=== PATIENT | male | born 1995 | race African-American/Black ===

== ENCOUNTER 2018-10-25 13:17 | Emergency (ER) | payer OTHER ==
[~2018-10-25] VITALS: Ht 188 cm; Wt 90.7 kg
[2018-10-25 14:36] VITALS: BP 141/73
--- NOTE | 2018-10-25 14:54 | PHYS DOC ---
Past Medical History Past Medical History: No Pertinent History Past Surgical History: No Surgical History Alcohol Use: Occasionally Drug Use: Marijuana Adult General Chief Complaint Chief Complaint: HIP PAIN HPI HPI Patient is a previously healthy 23-year-old male who presents to the emergency department for evaluation. He has had right hip/groin area pain for the past several months, waxing and waning, some improvement with use of ibuprofen. He states the pain became worse last night, and prevented him from sleeping so he came to the emergency department for evaluation. He has not seen a physician for this pain yet until this point. He denies any precipitating or inciting injury, or recent injuries. He denies any numbness, weakness, or incontinence. He does admit some lower back pain as well, and the pain radiates from his right hip, down towards the lateral and anterior aspect of his right thigh. He does not have any tenderness to palpation in this area per say. He does have some discomfort in his right groin. He has not had any masses in that area. He denies any penile discharge or urinary symptoms. He denies any testicular pain. He has not had any abdominal pain, fevers, or chills. He does smoke marijuana occasionally but denies any history of IV drug use. There are no alleviating or exacerbating factors to the patient's symptoms except that certain movements seem to worsen his pain. Review of Systems Review of Systems Constitutional: Denies fever or chills [] Eyes: Denies change in visual acuity, redness, or eye pain [] HENT: Denies nasal congestion or sore throat [] GI: Denies abdominal pain, nausea, vomiting, bloody stools or diarrhea [] : Denies dysuria or hematuria [] Musculoskeletal: Denies back pain or joint pain, except as noted in the history of present illness [] Integument: Denies rash or skin lesions [] Neurologic: Denies headache, focal weakness or sensory changes [] Allergies Allergies Allergies Coded Allergies Type Severity Reaction Last Updated Verified No Known Drug Allergies 10/25/18 No Physical Exam Physical Exam PHYSICAL EXAM: CONSTITUTIONAL: Well developed, well nourished HEAD: normocephalic, atraumatic EENT: PERRL, EOMI. Conjunctivae normal color, sclerae non-icteric; moist mucous membranes. NECK: Supple, non-tender; no meningismus. LUNGS: Lungs CTA, breathing even and unlabored. Normal air movement. HEART: Regular rate and rhythm, no murmur CHEST: No deformity; non-tender ABDOMEN: The abdomen is soft, and non-tender, no masses or bruits. EXTREM: Normal ROM; no deformity, no calf tenderness. Normal pulses palpable in all extremities. There is no pedal edema. SKIN: No rash; no diaphoresis NEURO: Alert; normal speech and cognition; CN's grossly intact; strength grossly intact without focal deficit. Sensation in the right groin is intact. BACK: No CVA TTP. There is mild tenderness to palpation diffusely in the lumbar spine without bony tenderness to palpation or step-off. MUSCULOSKELETAL/GENITAL: Normal external genitalia is present. There are no palpable hernias. There is no penile discharge. There is no palpable mass in the right groin. There is mild tenderness to palpation in the right groin area, there is tenderness to palpation of the right hip area diffusely, without focal bony tenderness to palpation. Current Patient Data Vital Signs Vital Signs Date Time Temp Pulse Resp B/P (MAP) Pulse Ox O2 Delivery O2 Flow Rate FiO2 10/25/18 14:36 98.2 74 16 141/73 (95) 100 Room Air 98.2 Lab Values Laboratory Tests Test 10/25/18 14:47 Urine Collection Type Unknown Urine Color Yellow Urine Clarity Clear Urine pH 6.0 Urine Specific [place] 1.015 Urine Protein Negative mg/dL (NEG-TRACE) Urine Glucose (UA) Negative mg/dL (NEG) Urine Ketones (Stick) 15 mg/dL (NEG) Urine Blood Negative (NEG) Urine Nitrite Negative (NEG) Urine Bilirubin Negative (NEG) Urine Urobilinogen Dipstick 0.2 mg/dL (0.2 mg/dL) Urine Leukocyte Esterase Negative (NEG) Urine RBC 0 /HPF (0-2) Urine WBC 0 /HPF (0-4) Urine Bacteria 0 /HPF (0-FEW) Urine Mucus Slight /LPF EKG EKG [] Radiology/Procedures Radiology/Procedures [PROCEDURE: HIP RIGHT 2 VIEW EXAM: Right hip, 2 views; lumbar spine, 3 views. HISTORY: Pain. COMPARISON: None. FINDINGS: Frontal and frog-leg views of the right hip and frontal, lateral and coned sacral views of the lumbar spine are obtained. There is no fracture, dislocation or subluxation. There is slight retrolisthesis of L5 on S1. The vertebral bodies are normal in height and the disc spaces are preserved. IMPRESSION: No acute osseous finding.] Course & Med Decision Making Course & Med Decision Making Pertinent Labs and Imaging studies reviewed. (See chart for details) [3:30 PM: The patient's condition remains a stable. Discussed test results in detail with the patient, the need for close follow-up with orthopedics, the possible need for outpatient MRI of his lumbar spinous symptoms persist, and return precautions. Differential diagnosis includes groin strain, versus degenerative disc disease] Dragon Disclaimer Dragon Disclaimer This electronic medical record was generated, in whole or in part, using a voice recognition dictation system. Departure Departure Impression: Primary Impression: Hip pain Disposition: 01 HOME, SELF-CARE Condition: STABLE Referrals: TAE ORTEGA II, MD, FRANK P MD Patient Instructions: Hip Pain, Lumbosacral Radiculopathy Additional Instructions: Applying a heating pad to the affected area may help improve your symptoms. The prescribed medications may cause drowsiness-use caution while taking. Further outpatient evaluation, both of orthopedics, and with a auricular detoxification specialist is warranted, for further evaluation of your symptoms. You might need an MRI of her hip, lumbar spine, or both, for further evaluation. Please use the attached phone numbers to help schedule follow-up appointment. Scripts Diclofenac Sodium (DICLOFENAC SODIUM) 50 Mg Tablet.dr 1 TAB PO BID, #20 TAB 0 Refills Prov: LAXMI GONZALEZ MD 10/25/18 Cyclobenzaprine Hcl (CYCLOBENZAPRINE HCL) 10 Mg Tablet 1 TAB PO TID PRN for PAIN, #30 TAB Prov: LAXMI GONZALEZ MD 10/25/18 LAXMI GONZALEZ MD Oct 25, 2018 14:54
[2018-10-25 15:05] LABS: BILIRUBIN,URINE NEGATIVE (NEG); CLARITY,URINE CLEAR; COLOR,URINE YELLOW; NITRITE,URINE NEGATIVE (NEG); PROTEIN,URINE NEGATIVE (NEG-TRACE); UROBILINOGEN,URINE 0.2 mg/dL (0.2 mg/dL)
[2018-10-25 15:14] LABS: BACTERIA,URINE 0 /HPF (0-FEW); RBC,URINE 0 /HPF (0-2); WBC,URINE 0 /HPF (0-4)
--- NOTE | 2018-10-25 15:20 | RAD ---
EXAM: Right hip, 2 views; lumbar spine, 3 views. HISTORY: Pain. COMPARISON: None. FINDINGS: Frontal and frog-leg views of the right hip and frontal, lateral and coned sacral views of the lumbar spine are obtained. There is no fracture, dislocation or subluxation. There is slight retrolisthesis of L5 on S1. The vertebral bodies are normal in height and the disc spaces are preserved. IMPRESSION: No acute osseous finding. Electronically signed by: Unique Mackenzie MD (10/25/2018 3:16 PM) [place] [id number]
[2018-10-25] MEDS ORDERED: DICL50TA4 PO (15:34)
[2018-10-25] MEDS ORDERED: CYCL10TA2 PO (15:34)
== END 2018-10-25 16:00 | disposition home or self-care (01) ==
LOC: ER 13:17
DX: M25.551 Pain in right hip (principal); M54.5 Low back pain; M79.651 Pain in right thigh
CPT/HCPCS: 72100; 73502; 81001; 99284

== ENCOUNTER 2018-12-13 11:37 | Emergency (ER) | payer OTHER ==
[~2018-12-13] VITALS: Ht 188 cm; Wt 88.5 kg
[~2018-12-13 11:37] MED LIST: CYCL10TA2 PO; DICL50TA4 PO
[2018-12-13 12:00] VITALS: BP 122/78
--- NOTE | 2018-12-13 13:14 | RAD ---
Ultrasound venous Doppler INDICATION:Right lower lobectomy swelling. TECHNIQUE: Grayscale, color Doppler and spectral waveform ultrasound images of the right lower extremity deep veins obtained. COMPARISON: None FINDINGS: The interrogated deep veins are compressible and demonstrate evidence of blood flow with normal respiratory variation and response to augmentation. Enlarged right inguinal lymph node is seen measuring 4.2 x 1.1 x 4.0 cm. IMPRESSION: 1. No sonographic evidence of acute DVT of the right lower extremity deep veins. 2. Multiple right inguinal enlarged lymph nodes nonspecific may be reactive or from a lymphoproliferative disease. Electronically signed by: Delmar Morton DO (12/13/2018 1:10 PM) [id number]
--- NOTE | 2018-12-13 14:10 | PHYS DOC ---
Past Medical History Past Medical History: No Pertinent History Past Surgical History: No Surgical History Alcohol Use: Occasionally Drug Use: Marijuana Adult General Chief Complaint Chief Complaint: LOWER EXTREMITY SWELLING HPI HPI Patient is a 23 year old male with no significant medical history who presents to the ED today complaining of 7 out of 10 right knee pain with swelling radiating from the knee into the thigh that has been going on for months. Patient denies any known injury. He states he has been following up with Dr. Maria the orthopedic doctor. He states he called the office today and they sent him to the ED to have a venous Doppler to rule out DVT. Review of Systems Review of Systems Constitutional: Denies fever or chills [] Eyes: Denies change in visual acuity, redness, or eye pain [] HENT: Denies nasal congestion or sore throat [] Respiratory: Denies cough or shortness of breath [] Cardiovascular: No additional information not addressed in HPI [] GI: Denies abdominal pain, nausea, vomiting, bloody stools or diarrhea [] : Denies dysuria or hematuria [] Musculoskeletal: Chronic right knee pain, chronic right lower extremity swelling. Integument: Denies rash or skin lesions [] Neurologic: Denies headache, focal weakness or sensory changes [] All other systems were reviewed and found to be within normal limits, except as documented in this note. Allergies Allergies Allergies Coded Allergies Type Severity Reaction Last Updated Verified No Known Drug Allergies 10/25/18 No Physical Exam Physical Exam Constitutional: Well developed, well nourished, no acute distress, non-toxic appearance. [] HENT: Normocephalic, atraumatic, bilateral external ears normal, oropharynx moist, no oral exudates, nose normal. [] Eyes: PERRLA, EOMI, conjunctiva normal, no discharge. [] Neck: Normal range of motion, no tenderness, supple, no stridor. [] Cardiovascular:Heart rate regular rhythm, no murmur [] Lungs & Thorax: Bilateral breath sounds clear to auscultation [] Abdomen: Bowel sounds normal, soft, no tenderness, no masses, no pulsatile masses. [] Skin: Warm, dry, no erythema, no rash. [] Back: No tenderness, no CVA tenderness. [] Extremities: Right lower extremity with no obvious deformity, negative Homans sign to the right lower extremity. Slight swelling noted on the right thigh. Full range of motion to the right lower extremity. +2 right pedal pulse. Cap refill less than 2 seconds the right toes. Neurologic: Alert and oriented X 3, normal motor function, normal sensory function, no focal deficits noted. [] Psychologic: Affect normal, judgement normal, mood normal. [] Current Patient Data Vital Signs Vital Signs Date Time Temp Pulse Resp B/P (MAP) Pulse Ox O2 Delivery O2 Flow Rate FiO2 12/13/18 12:00 98.4 84 16 122/78 (93) 99 Room Air 98.4 EKG EKG [] Radiology/Procedures Radiology/Procedures [] Course & Med Decision Making Course & Med Decision Making Pertinent Labs and Imaging studies reviewed. (See chart for details) This is a 23-year-old male patient presenting to the ED today for venous Doppler of the right lower extremity. He has had right thigh swelling and right knee pain for months. Follows up with orthopedic doctor. Has an MRI scheduled on Monday. Was sent to the ED for venous Doppler. Venous Doppler was negative for DVT. Patient discharged to continue following up with orthopedic doctor. Dragon Disclaimer Dragon Disclaimer This electronic medical record was generated, in whole or in part, using a voice recognition dictation system. Departure Departure Impression: Primary Impression: Right leg swelling Additional Impression: Chronic pain of right knee Disposition: 01 HOME, SELF-CARE Condition: STABLE Referrals: NO PCP (PCP) MARLON MARIA MD follow up next week Patient Instructions: Edema, [id number], Knee Pain, [id number] Additional Instructions: You were evaluated in the emergency room, your ultrasound of the right lower extremity was negative for any blood clots. Please continue following up with the orthopedic doctor. Scripts Hydrocodone/Apap 5-325 (NORCO 5-325 TABLET) 1 Each Tablet 1 TAB PO Q6HRS, #12 TAB Prov: DELMIS VOGEL APRN 12/13/18 Problem Qualifiers DELMIS VOGEL APRN Dec 13, 2018 14:10
[2018-12-13] MEDS ORDERED: HYDR-3164 PO (14:15)
== END 2018-12-13 14:47 | disposition home or self-care (01) ==
LOC: ER 11:37
DX: G89.29 Other chronic pain (principal); M25.561 Pain in right knee; R22.41 Localized swelling, mass and lump, right lower limb
CPT/HCPCS: 93971; 99284-25

== ENCOUNTER → 2018-12-17 | Outpatient (CLI) | payer OTHER ==
[2018-12-13 12:00] VITALS: BP 122/78
[~2018-12-17] MED LIST changes: +HYDR-3164 PO
--- NOTE | 2018-12-17 09:54 | RAD ---
MRI Lumbar Spine without contrast History: Right leg swelling for 3 months Technique: Multiplanar, multi sequential noncontrast MR imaging was performed of the lumbar spine. Comparison: None Findings: Lumbar vertebral body stature and AP alignment are preserved. Intervertebral disc spaces are adequate. Conus terminates at L1. There is no significant marrow edema. Relative low signal of the marrow on T1 sequence is probably due to residual red marrow in a patient this age. L1-L2, L2-3: These levels were not included on the axial images. Neural foramina and spinal canal are adequate. L3-L4: Neural foramina and spinal canal are adequate. L4-L5: Spinal canal and neural foramina are adequate. L5-S1: Neural foramina and spinal canal are adequate. Impression: 1. There is no significant lumbar spinal stenosis or neural foramina compromise, no significant abnormality. Electronically signed by: Beni Estrada MD (12/17/2018 9:51 AM) [id number]
== END | disposition home or self-care (01) ==
LOC: MRI 09:03
PROVIDERS: ATTEND Orthopaedic Surgery
DX: M25.561 Pain in right knee (principal)
CPT/HCPCS: 72148

== ENCOUNTER 2018-12-25 20:25 | Emergency (ER) | payer OTHER | END 2018-12-25 20:53 | disposition left against medical advice (07) | LOC: ER 20:25 | DX: R22.41 Localized swelling, mass and lump, right lower limb (principal); Z53.21 Procedure and treatment not carried out due to patient leaving prior to being seen by health care provider ==

== ENCOUNTER 2018-12-26 12:18 | Inpatient (IN) | payer OTHER ==
[~2018-12-26] VITALS: Ht 188 cm; Wt 96.6 kg
[2018-12-26] MEDS ORDERED: HYDROcodone/APAP 5/325MG 1 TAB TABLET PO PRN (13:15)
[2018-12-26] MEDS: ENOXAPARIN 40 MG/0.4 ML SYRINGE. SQ SCH (14:26)
[2018-12-26 15:00] VITALS: BP 111/72
[2018-12-26] MEDS ORDERED: IOHEXOL 300 MG/ML 100ML VIAL. IV ONE (15:00)
[2018-12-26] MEDS ORDERED: CONTRAST GIVEN. MC PRN (15:00)
[2018-12-26] MEDS ORDERED: IOHEXOL 240 MG/ML 50ML VIAL. PO ONE (15:00)
[2018-12-26 15:17] LABS: BASO # 0.1 x10^3/uL (0.0-0.2); BASO % 2 % (0-3); EOS # 0.4 x10^3/uL (0.0-0.7); EOS % 5 % (0-3); HEMATOCRIT 39.9 % (39.0-53.0); HEMOGLOBIN 12.9 g/dL (13.0-17.5); LYMPH # 0.8 x10^3/uL (1.0-4.8); LYMPH % 12 % (24-48); MEAN CORPUSCULAR HEMOGLOBIN 26 pg (25-35); MEAN CORPUSCULAR HGB CONC 32 g/dL (31-37); MEAN CORPUSCULAR VOLUME 82 fL (79-100); MONO # 0.8 x10^3/uL (0.0-1.1); MONO % 12 % (0-9); NEUT # 4.7 x10^3uL (1.8-7.7); NEUT % 70 % (31-73); PLATELET COUNT 308 x10^3/uL (140-400); RED BLOOD COUNT 4.89 x10^6/uL (4.30-5.70); RED CELL DISTRIBUTION WIDTH 16.6 % (11.5-14.5); WHITE BLOOD COUNT 6.7 x10^3/uL (4.0-11.0)
[2018-12-26 15:48] LABS: ALBUMIN 3.2 g/dL (3.4-5.0); ALBUMIN/GLOBULIN RATIO 0.8 (1.0-1.7); CALCIUM 8.4 mg/dL (8.5-10.1); CREATININE 1.2 mg/dL (0.7-1.3); POTASSIUM 3.9 mmol/L (3.5-5.1); TOTAL BILIRUBIN 0.4 mg/dL (0.2-1.0); TOTAL PROTEIN 7.2 g/dL (6.4-8.2)
[2018-12-26] MEDS ORDERED: GADOBUTROL 10 MMOL/10 ML VIAL IV ONE (16:30)
--- NOTE | 2018-12-26 16:30 | PDOC2 ---
CONSULT Date of Consult Date of Consult DATE: 12/26/18 TIME: 16:28 Per report patient is a 23-year-old male with significant lower extremity swelling, he's been evaluated by ortho, plain films have been negative, though recent ultrasound for possible DVT in November showed lymphadenopathy at the right inguinal region up to 4.2 cm, I came to see him today though I'm told he' s in CT and MRI, and I will return on Monday to finish consult Recommend CT chest abdomen and pelvis, I'm told he's getting this now Will order LDH Recommend biopsy, an inguinal lymph node would be a good target unless a better target seen based on imaging, would prefer excisional lymph node biopsy to check architecture with flow cytometry of fresh specimen Will return on Monday to complete consult Thank you kindly and please don't hesitate to call with any questions in the interim Current Medications Current Medications Current Medications Acetaminophen/ Hydrocodone Bitart (Lortab 5/325) 1 tab PRN Q4HRS PRN PO MILD PAIN Last administered on 12/26/18at 14:20; Start 12/26/18 at 13:15 Acetaminophen/ Hydrocodone Bitart (Lortab 5/325) 2 tab PRN Q4HRS PRN PO MODERATE PAIN, SEVERE PAIN; Start 12/26/18 at 13:15 Enoxaparin Sodium (Lovenox 40mg Syringe) 40 mg Q24H SQ Last administered on 12/26at 14:26; Start 12/26/18 at 14:00 Iohexol (Omnipaque 300 Mg/ml) 75 ml 1X ONCE IV Last administered on 12/26/18at 16:00; Start 12/26/18 at 15:00; Stop 12/26/18 at 15:01; Status DC Iohexol (Omnipaque 240 Mg/ml) 30 ml 1X ONCE PO Last administered on 12/26/18at 15:00; Start 12/26/18 at 15:00; Stop 12/26/18 at 15:01; Status DC Info (CONTRAST GIVEN -- Rx MONITORING) 1 each PRN DAILY PRN MC SEE COMMENTS; Start 12/26/18 at 15:00; Stop 12/28/18 at 14:59 Sodium Chloride 1,000 ml @ 100 mls/hr Q10H IV ; Start 12/26/18 at 16:00 Gadobutrol (Gadavist) 9 mmol 1X ONCE IV ; Start 12/26/18 at 16:30; Stop 12/26/18 at 16:31 Active Scripts Active [place] 5-325 Tablet (Acetaminophen/Hydrocodone Bitart) 1 Each Tablet 1 Tab PO Q6HRS Diclofenac Sodium 50 Mg Tablet.dr 1 Tab PO BID Cyclobenzaprine Hcl 10 Mg Tablet 1 Tab PO TID PRN Allergies Allergies: Coded Allergies: No Known Drug Allergies (Unverified , 10/25/18) Vitals VITALS Vital Signs Date Time Temp Pulse Resp B/P (MAP) Pulse Ox O2 Delivery O2 Flow Rate FiO2 12/26/18 14:20 18 Room Air Labs Labs Laboratory Tests Test 12/26/18 15:00 White Blood Count 6.7 x10^3/uL (4.0-11.0) Red Blood Count 4.89 x10^6/uL (4.30-5.70) Hemoglobin 12.9 g/dL (13.0-17.5) Hematocrit 39.9 % (39.0-53.0) Mean Corpuscular Volume 82 fL (79-100) Mean Corpuscular Hemoglobin 26 pg (25-35) Mean Corpuscular Hemoglobin Concent 32 g/dL (31-37) Red Cell Distribution Width 16.6 % (11.5-14.5) Platelet Count 308 x10^3/uL (140-400) Neutrophils (%) (Auto) 70 % (31-73) Lymphocytes (%) (Auto) 12 % (24-48) Monocytes (%) (Auto) 12 % (0-9) Eosinophils (%) (Auto) 5 % (0-3) Basophils (%) (Auto) 2 % (0-3) Neutrophils # (Auto) 4.7 x10^3uL (1.8-7.7) Lymphocytes # (Auto) 0.8 x10^3/uL (1.0-4.8) Monocytes # (Auto) 0.8 x10^3/uL (0.0-1.1) Eosinophils # (Auto) 0.4 x10^3/uL (0.0-0.7) Basophils # (Auto) 0.1 x10^3/uL (0.0-0.2) Sodium Level 139 mmol/L (136-145) Potassium Level 3.9 mmol/L (3.5-5.1) Chloride Level 102 mmol/L (98-107) Carbon Dioxide Level 27 mmol/L (21-32) Anion Gap 10 (6-14) Blood Urea Nitrogen 15 mg/dL (8-26) Creatinine 1.2 mg/dL (0.7-1.3) Estimated GFR (Cockcroft-Gault) 90.0 BUN/Creatinine Ratio 13 (6-20) Glucose Level 96 mg/dL (70-99) Calcium Level 8.4 mg/dL (8.5-10.1) Total Bilirubin 0.4 mg/dL (0.2-1.0) Aspartate Amino Transf (AST/SGOT) 28 U/L (15-37) Alanine Aminotransferase (ALT/SGPT) 34 U/L (16-63) Alkaline Phosphatase 62 U/L (46-116) Total Protein 7.2 g/dL (6.4-8.2) Albumin 3.2 g/dL (3.4-5.0) Albumin/Globulin Ratio 0.8 (1.0-1.7) Thyroid Stimulating Hormone (TSH) 0.377 uIU/mL (0.358-3.74) Laboratory Tests Test 12/26/18 15:00 White Blood Count 6.7 x10^3/uL (4.0-11.0) Red Blood Count 4.89 x10^6/uL (4.30-5.70) Hemoglobin 12.9 g/dL (13.0-17.5) Hematocrit 39.9 % (39.0-53.0) Mean Corpuscular Volume 82 fL (79-100) Mean Corpuscular Hemoglobin 26 pg (25-35) Mean Corpuscular Hemoglobin Concent 32 g/dL (31-37) Red Cell Distribution Width 16.6 % (11.5-14.5) Platelet Count 308 x10^3/uL (140-400) Neutrophils (%) (Auto) 70 % (31-73) Lymphocytes (%) (Auto) 12 % (24-48) Monocytes (%) (Auto) 12 % (0-9) Eosinophils (%) (Auto) 5 % (0-3) Basophils (%) (Auto) 2 % (0-3) Neutrophils # (Auto) 4.7 x10^3uL (1.8-7.7) Lymphocytes # (Auto) 0.8 x10^3/uL (1.0-4.8) Monocytes # (Auto) 0.8 x10^3/uL (0.0-1.1) Eosinophils # (Auto) 0.4 x10^3/uL (0.0-0.7) Basophils # (Auto) 0.1 x10^3/uL (0.0-0.2) Sodium Level 139 mmol/L (136-145) Potassium Level 3.9 mmol/L (3.5-5.1) Chloride Level 102 mmol/L (98-107) Carbon Dioxide Level 27 mmol/L (21-32) Anion Gap 10 (6-14) Blood Urea Nitrogen 15 mg/dL (8-26) Creatinine 1.2 mg/dL (0.7-1.3) Estimated GFR (Cockcroft-Gault) 90.0 BUN/Creatinine Ratio 13 (6-20) Glucose Level 96 mg/dL (70-99) Calcium Level 8.4 mg/dL (8.5-10.1) Total Bilirubin 0.4 mg/dL (0.2-1.0) Aspartate Amino Transf (AST/SGOT) 28 U/L (15-37) Alanine Aminotransferase (ALT/SGPT) 34 U/L (16-63) Alkaline Phosphatase 62 U/L (46-116) Total Protein 7.2 g/dL (6.4-8.2) Albumin 3.2 g/dL (3.4-5.0) Albumin/Globulin Ratio 0.8 (1.0-1.7) Thyroid Stimulating Hormone (TSH) 0.377 uIU/mL (0.358-3.74) SHELL LINDSAY MD Dec 26, 2018 16:30
--- NOTE | 2018-12-26 16:39 | RAD ---
PQRS Compliance statement: One or more of the following individualized dose reduction techniques were utilized for this examination: 1. Automated exposure control. 2. Adjustment of the mA and/or kV according to patient size. 3. Use of iterative reconstruction technique. Indication:lymphadenopathy inj 75ml Omni 300 no prev TECHNIQUE: CT chest, abdomen and pelviswith IV contrast with multiplanar reformats. COMPARISON: None FINDINGS: Heart is normal in size. No pericardial or effusion. Clear neck base. No enlarged axillary, mediastinal or hilar adenopathy. Central airways are patent. Lungs are clear. No suspicious bony lesions in the chest. Liver, spleen, gallbladder, pancreas, adrenals and kidneys are within normal limits. No enlarged retroperitoneal adenopathy. Enlarged right common iliac chain lymph node is seen measuring 3.1 x 2.8 cm (series 4 image 56). Large deepthi mass is seen in the at the bifurcation of the right common iliac artery measuring 6.0 x 5.1 cm (series 4 image 68). 3.6 x 3.8 cm deepthi mass is seen in the right hemipelvis (series 4 image 68). No renal mass is seen encasing the distal right external iliac artery measuring 4.3 x 3.9 cm (series 4 image 75) (. Enlarged right groin lymph nodes are seen, the largest measuring 3.0 x 1.2 cm (series 4 image 93) . Asymmetric fullness is seen in the visualized right upper thigh musculature with edema. No free pelvic fluid or ascites. No bowel obstruction. Normal appendix. Prostate is nonenlarged. Urinary bladder is within normal limits. No pneumoperitoneum. Ill-defined lucencies are seen in the right proximal femur involving the femoral neck and trochanter. IMPRESSION: 1. Multiple enlarged pelvic and right inguinal deepthi masses as described above. 2. Diffuse edema of the visualized right upper thigh soft tissue. This may be secondary to mass effect on the major veins. Venous Doppler of the right lower extremity can be obtained to evaluate for patency of the major veins. 3. Abnormal appearance of the right femoral trochanter. May lead to (impending) fracture. Differential diagnoses includes chronic osteomyelitis or primary bone malignancy of the right proximal femur such as primary lymphoma with deepthi metastasis. Electronically signed by: Delmar Morton DO (12/26/2018 4:36 PM) [id number]
[2018-12-26] MEDS: IV NORMAL SALINE 1000ML BAG 1,000 ML IV SCH (18:17)
[2018-12-26] MEDS: HYDROcodone/APAP 5/325MG 1 TAB TABLET PO PRN ×2 (18:36→22:51)
[2018-12-26 19:00] VITALS: BP 115/69
--- NOTE | 2018-12-26 20:24 | RAD ---
Right lower extremity venous doppler ultrasound History: Right lower extremity swelling and lymphadenopathy Comparison: 12/13/2018 Findings: Multiple grayscale, color, and duplex spectral analysis sonographic images were acquired of the right lower extremity veins to evaluate for the presence of DVT. No thrombus is demonstrated, compression images limited although normal color flow demonstrated from the right common femoral vein to the popliteal vein and also segments right calf veins. There are again multiple enlarged right groin lymph nodes, largest about 4.9 x 2.9 x 1.4 cm. There is significant soft tissue edema of the right lower extremity. Impression: 1. There is normal color flow of the right lower extremity veins, no thrombus demonstrated. There are again enlarged right groin lymph nodes. Electronically signed by: Beni Estrada MD (12/26/2018 8:21 PM) [facility]
--- NOTE | 2018-12-26 20:33 | HP ---
ADMIT DATE: 12/26/2018 CHIEF COMPLAINT: Right leg swelling and pain. HISTORY OF PRESENT ILLNESS AND HOSPITAL COURSE: This patient is a 23-year-old -[place] male who has had increasing back and right leg pain since 07/2018. In 10/2017, the patient began having thigh swelling and pain. The patient went to the ER for evaluation and was ruled out for DVT and treated for hip and knee pain and referred to Orthopedic Surgery. The patient was then seen by Orthopedic Surgery, and followup x-rays were ordered. The patient had negative films for low back arthritis and was referred to our office for further evaluation. The patient states that within the last 48 hours, he had increasing swelling, no longer in his thigh, but down into his lower extremity. His pain was increasing. He was having difficulty ambulating. Upon office evaluation, he was found to have markedly edematous right lower extremity twice the size of his left lower extremity, with recent history of negative venous Doppler for DVT. The patient did have findings of lymphadenopathy of 4 cm on sonogram. 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 PAST MEDICAL HISTORY: Negative for hypertension, diabetes, asthma or seizures. The patient has had a history of ulcers. The patient has recently been treated with ibuprofen, diclofenac, cyclobenzaprine and hydrocodone without significant relief. PAST SURGICAL HISTORY: Negative for previous surgeries. FAMILY HISTORY: Significant for mother who is alive with a history of uterine cancer, type 2 diabetes and asthma. SOCIAL HISTORY: The patient does smoke less than 5 cigarettes per day. The patient drinks occasionally. The patient uses marijuana intermittently. REVIEW OF SYSTEMS: Negative for fever, chills, recent weight loss, weight gain. The patient has no bowel or bladder dysfunction. The patient has difficulty ambulating with increasing pain to his right lower extremity. PHYSICAL EXAMINATION: GENERAL: This is a well-nourished, well-developed female, in mild to moderate distress. He is alert and oriented x 3. HEENT: Benign. NECK: Supple. CARDIAC: Regular rate and rhythm. LUNGS: Clear. ABDOMEN: Soft and nontender. EXTREMITIES: His right lower extremity was massively swollen with firmness in inguinal area, but no discrete mass could be felt. He did have 2+ pulses and 2-3+ pitting edema to the lower extremity extending to the toes, left lower extremity was normal. ASSESSMENT: 1. Intractable right lower extremity pain. 2. Mobility deficit. 3. Lymphedema. 4. Lymphadenopathy by sonogram. PLAN: To admit the patient to the hospital, obtain CT abdomen, chest and pelvis as well as MRI of pelvis. Consult Hem/Oncology for suspected lymphoma. Consult Vascular Surgery for assistance with possible vascular compromise of lower extremity and consult Orthopedic Surgery for possible lymph node biopsy and no abnormality found in the femur. ZAN PAK MD DR: ANITRA/cassandra JOB#: [id number] / [id number]
--- NOTE | 2018-12-26 20:54 | PDOC2 ---
CONSULT Date of Consult Date of Consult DATE: 12/26/18 TIME: 20:46 Reason for Consult Reason for Consult: Right lower extremity lymphedema History of Present Illness Reason for Visit: This is a very pleasant 23-year-old male who was asked to see for significant swelling and lymphedema of his right lower extremity. He states that this is been going on since July 2018. He has been seen and evaluated for this problem several times and had diagnostic evaluation including venous duplex without a diagnosis. He presents tonight with continued significant swelling of his right lower extremity which appears consistent with lymphedema. He has no history of congenital abnormalities and no significant family history of medical disease. He denies any constitutional symptoms including weight loss or night sweats. Other than pain in his right thigh from swelling, he has no other significant symptoms. He is an otherwise healthy 23-year-old. The patient does smoke 3-4 cigarettes per day. Past Medical History Cardiovascular: No pertinent hx Pulmonary: No pertinent hx GI: No pertinent hx Heme/Onc: No pertinent hx Hepatobiliary: No pertinent hx Psych: No pertinent hx Rheumatologic: No pertinent hx Infectious disease: No pertinent hx ENT: No pertinent hx Renal/: No pertinent hx Endocrine: No pertinent hx Dermatology: No pertinent hx Past Surgical History Past Surgical History: No pertinent history Social History <1 pack per day (4-5 cigarettes per day) ALCOHOL: occassional Drugs: None Current Medications Current Medications Current Medications Acetaminophen/ Hydrocodone Bitart (Lortab 5/325) 1 tab PRN Q4HRS PRN PO MILD PAIN Last administered on 12/26/18at 14:20; Start 12/26/18 at 13:15 Acetaminophen/ Hydrocodone Bitart (Lortab 5/325) 2 tab PRN Q4HRS PRN PO MODERATE PAIN, SEVERE PAIN Last administered on 12/26/18at 18:36; Start 12/26/18 at 13:15 Enoxaparin Sodium (Lovenox 40mg Syringe) 40 mg Q24H SQ Last administered on 12/26at 14:26; Start 12/26/18 at 14:00 Iohexol (Omnipaque 300 Mg/ml) 75 ml 1X ONCE IV Last administered on 12/26/18at 16:00; Start 12/26/18 at 15:00; Stop 12/26/18 at 15:01; Status DC Iohexol (Omnipaque 240 Mg/ml) 30 ml 1X ONCE PO Last administered on 12/26/18at 15:00; Start 12/26/18 at 15:00; Stop 12/26/18 at 15:01; Status DC Info (CONTRAST GIVEN -- Rx MONITORING) 1 each PRN DAILY PRN MC SEE COMMENTS; Start 12/26/18 at 15:00; Stop 12/28/18 at 14:59 Sodium Chloride 1,000 ml @ 100 mls/hr Q10H IV Last administered on 12/26/18at 18 :17; Start 12/26/18 at 16:00 Gadobutrol (Gadavist) 9 mmol 1X ONCE IV Last administered on 12/26/18at 16:30; Start 12/26/18 at 16:30; Stop 12/26/18 at 16:31; Status DC Active Scripts Active [place] 5-325 Tablet (Acetaminophen/Hydrocodone Bitart) 1 Each Tablet 1 Tab PO Q6HRS Diclofenac Sodium 50 Mg Tablet.dr 1 Tab PO BID Cyclobenzaprine Hcl 10 Mg Tablet 1 Tab PO TID PRN Allergies Allergies: Coded Allergies: No Known Drug Allergies (Unverified , 10/25/18) Physical Exam General: Alert, Oriented X3, Cooperative, No acute distress HEENT: Atraumatic, PERRLA, EOMI Lungs: Clear to auscultation, Normal air movement Heart: Regular rate, Normal S1, Normal S2, No murmurs Abdomen: Normal bowel sounds, Soft, No tenderness Extremities: Normal pulses, Other (significant unilateral swelling of the right lower extremity consistent with significant lymphedema. There is no obvious palpable mass or lymphadenopathy but the exam is limited due to significant swelling.) Skin: No rashes, No breakdown, No significant lesion Neuro: Normal speech, Strength at 5/5 X4 ext, Normal tone, Sensation intact, Cranial nerves 3-12 NL Psych/Mental Status: Mental status NL, Mood NL MUSCULOSKELETAL: No joint tenderness Vitals VITALS Vital Signs Date Time Temp Pulse Resp B/P (MAP) Pulse Ox O2 Delivery O2 Flow Rate FiO2 12/26/18 19:51 Room Air 12/26/18 19:00 98.2 84 16 115/69 (84) 100 98.2 Labs Labs Laboratory Tests Test 12/26/18 15:00 White Blood Count 6.7 x10^3/uL (4.0-11.0) Red Blood Count 4.89 x10^6/uL (4.30-5.70) Hemoglobin 12.9 g/dL (13.0-17.5) Hematocrit 39.9 % (39.0-53.0) Mean Corpuscular Volume 82 fL (79-100) Mean Corpuscular Hemoglobin 26 pg (25-35) Mean Corpuscular Hemoglobin Concent 32 g/dL (31-37) Red Cell Distribution Width 16.6 % (11.5-14.5) Platelet Count 308 x10^3/uL (140-400) Neutrophils (%) (Auto) 70 % (31-73) Lymphocytes (%) (Auto) 12 % (24-48) Monocytes (%) (Auto) 12 % (0-9) Eosinophils (%) (Auto) 5 % (0-3) Basophils (%) (Auto) 2 % (0-3) Neutrophils # (Auto) 4.7 x10^3uL (1.8-7.7) Lymphocytes # (Auto) 0.8 x10^3/uL (1.0-4.8) Monocytes # (Auto) 0.8 x10^3/uL (0.0-1.1) Eosinophils # (Auto) 0.4 x10^3/uL (0.0-0.7) Basophils # (Auto) 0.1 x10^3/uL (0.0-0.2) Sodium Level 139 mmol/L (136-145) Potassium Level 3.9 mmol/L (3.5-5.1) Chloride Level 102 mmol/L (98-107) Carbon Dioxide Level 27 mmol/L (21-32) Anion Gap 10 (6-14) Blood Urea Nitrogen 15 mg/dL (8-26) Creatinine 1.2 mg/dL (0.7-1.3) Estimated GFR (Cockcroft-Gault) 90.0 BUN/Creatinine Ratio 13 (6-20) Glucose Level 96 mg/dL (70-99) Calcium Level 8.4 mg/dL (8.5-10.1) Total Bilirubin 0.4 mg/dL (0.2-1.0) Aspartate Amino Transf (AST/SGOT) 28 U/L (15-37) Alanine Aminotransferase (ALT/SGPT) 34 U/L (16-63) Alkaline Phosphatase 62 U/L (46-116) Lactate Dehydrogenase 316 U/L (85-227) Total Protein 7.2 g/dL (6.4-8.2) Albumin 3.2 g/dL (3.4-5.0) Albumin/Globulin Ratio 0.8 (1.0-1.7) Thyroid Stimulating Hormone (TSH) 0.377 uIU/mL (0.358-3.74) Laboratory Tests Test 12/26/18 15:00 White Blood Count 6.7 x10^3/uL (4.0-11.0) Red Blood Count 4.89 x10^6/uL (4.30-5.70) Hemoglobin 12.9 g/dL (13.0-17.5) Hematocrit 39.9 % (39.0-53.0) Mean Corpuscular Volume 82 fL (79-100) Mean Corpuscular Hemoglobin 26 pg (25-35) Mean Corpuscular Hemoglobin Concent 32 g/dL (31-37) Red Cell Distribution Width 16.6 % (11.5-14.5) Platelet Count 308 x10^3/uL (140-400) Neutrophils (%) (Auto) 70 % (31-73) Lymphocytes (%) (Auto) 12 % (24-48) Monocytes (%) (Auto) 12 % (0-9) Eosinophils (%) (Auto) 5 % (0-3) Basophils (%) (Auto) 2 % (0-3) Neutrophils # (Auto) 4.7 x10^3uL (1.8-7.7) Lymphocytes # (Auto) 0.8 x10^3/uL (1.0-4.8) Monocytes # (Auto) 0.8 x10^3/uL (0.0-1.1) Eosinophils # (Auto) 0.4 x10^3/uL (0.0-0.7) Basophils # (Auto) 0.1 x10^3/uL (0.0-0.2) Sodium Level 139 mmol/L (136-145) Potassium Level 3.9 mmol/L (3.5-5.1) Chloride Level 102 mmol/L (98-107) Carbon Dioxide Level 27 mmol/L (21-32) Anion Gap 10 (6-14) Blood Urea Nitrogen 15 mg/dL (8-26) Creatinine 1.2 mg/dL (0.7-1.3) Estimated GFR (Cockcroft-Gault) 90.0 BUN/Creatinine Ratio 13 (6-20) Glucose Level 96 mg/dL (70-99) Calcium Level 8.4 mg/dL (8.5-10.1) Total Bilirubin 0.4 mg/dL (0.2-1.0) Aspartate Amino Transf (AST/SGOT) 28 U/L (15-37) Alanine Aminotransferase (ALT/SGPT) 34 U/L (16-63) Alkaline Phosphatase 62 U/L (46-116) Lactate Dehydrogenase 316 U/L (85-227) Total Protein 7.2 g/dL (6.4-8.2) Albumin 3.2 g/dL (3.4-5.0) Albumin/Globulin Ratio 0.8 (1.0-1.7) Thyroid Stimulating Hormone (TSH) 0.377 uIU/mL (0.358-3.74) Assessment/Plan Assessment/Plan Right lower extremity extensive lymphedema--this is likely secondary lymphedema to a primary lymphatic process worrisome for lymphoma. I did review a CT scan of the chest, abdomen, and pelvis which reveals bulky lymphadenopathy involving the right-sided retroperitoneum. This is most consistent with lymphoma but certainly there are other malignancies within the differential. The MRI of his right lower extremity is pending. The patient has been seen by hematology and oncology. I have recommended a right lower extremity custom compression stocking to help with his swelling symptoms. His treatment is going to involve primary management and diagnosis of his retroperitoneal lymphadenopathy. This is going to require a lymph node biopsy. We will defer to Gen. surgery regarding this. There is no vascular surgery intervention necessary and from our standpoint compression will be recommended. The the patient should be on appropriate DVT prophylaxis including mechanical SCDs while in the hospital. We will defer to the primary team in regards to managing this problem. AMBERLY STORM DO Dec 26, 2018 20:54
[2018-12-26 23:00] VITALS: BP 139/76
[2018-12-27 03:00] VITALS: BP 122/69
[2018-12-27] MEDS: HYDROcodone/APAP 5/325MG 1 TAB TABLET PO PRN ×4 (03:53→22:21)
[2018-12-27] MEDS: IV NORMAL SALINE 1000ML BAG 1,000 ML IV SCH ×3 (03:54→22:21)
[2018-12-27 07:00] VITALS: BP 141/70
[2018-12-27 07:09] LABS: CALCIUM 8.4 mg/dL (8.5-10.1); CREATININE 0.9 mg/dL (0.7-1.3); GFR 125.4; POTASSIUM 4.2 mmol/L (3.5-5.1)
[2018-12-27 07:40] LABS: BASO % 0 % (0-3); EOS # 0.3 x10^3/uL (0.0-0.7); EOS % 6 % (0-3); HEMATOCRIT 40.7 % (39.0-53.0); HEMOGLOBIN 13.2 g/dL (13.0-17.5); LYMPH # 0.8 x10^3/uL (1.0-4.8); LYMPH % 14 % (24-48); MEAN CORPUSCULAR HEMOGLOBIN 27 pg (25-35); MEAN CORPUSCULAR HGB CONC 33 g/dL (31-37); MEAN CORPUSCULAR VOLUME 82 fL (79-100); MONO # 0.9 x10^3/uL (0.0-1.1); MONO % 17 % (0-9); NEUT # 3.6 x10^3uL (1.8-7.7); NEUT % 64 % (31-73); PLATELET COUNT 321 x10^3/uL (140-400); RED BLOOD COUNT 4.98 x10^6/uL (4.30-5.70); RED CELL DISTRIBUTION WIDTH 16.4 % (11.5-14.5); WHITE BLOOD COUNT 5.6 x10^3/uL (4.0-11.0)
--- NOTE | 2018-12-27 09:01 | PDOC2 ---
CONSULT Date of Consult Date of Consult DATE: 12/27/18 TIME: 08:57 Reason for Consult Reason for Consult: Right lower extremity lymphedema Referring Physician Referring Physician: Jon Identification/Chief Complaint Chief Complaint Right lower extremity pain Source Source: Chart review, Patient History of Present Illness Reason for Visit: Patient is a pleasant 23-year-old -[place] has had pain and swelling in his leg since approximately July 2018. It has recently become worse with more swelling noted in his calf and foot. He tells me his whole leg hurts and feels heavy. He denies any other complaints at this time. He cannot recall any antecedent trauma. Past Medical History Cardiovascular: No pertinent hx Pulmonary: No pertinent hx GI: No pertinent hx Heme/Onc: No pertinent hx Hepatobiliary: No pertinent hx Psych: No pertinent hx Rheumatologic: No pertinent hx Infectious disease: No pertinent hx ENT: No pertinent hx Renal/: No pertinent hx Endocrine: No pertinent hx Dermatology: No pertinent hx Past Surgical History Past Surgical History: No pertinent history Social History <1 pack per day (4-5 cigarettes per day) ALCOHOL: occassional Drugs: None Current Medications Current Medications Current Medications Acetaminophen/ Hydrocodone Bitart (Lortab 5/325) 1 tab PRN Q4HRS PRN PO MILD PAIN Last administered on 12/26/18at 14:20; Start 12/26/18 at 13:15 Acetaminophen/ Hydrocodone Bitart (Lortab 5/325) 2 tab PRN Q4HRS PRN PO MODERATE PAIN, SEVERE PAIN Last administered on 12/27/18at 08:52; Start 12/26/18 at 13:15 Enoxaparin Sodium (Lovenox 40mg Syringe) 40 mg Q24H SQ Last administered on 12/26at 14:26; Start 12/26/18 at 14:00 Iohexol (Omnipaque 300 Mg/ml) 75 ml 1X ONCE IV Last administered on 12/26/18at 16:00; Start 12/26/18 at 15:00; Stop 12/26/18 at 15:01; Status DC Iohexol (Omnipaque 240 Mg/ml) 30 ml 1X ONCE PO Last administered on 12/26/18at 15:00; Start 12/26/18 at 15:00; Stop 12/26/18 at 15:01; Status DC Info (CONTRAST GIVEN -- Rx MONITORING) 1 each PRN DAILY PRN MC SEE COMMENTS; Start 12/26/18 at 15:00; Stop 12/28/18 at 14:59 Sodium Chloride 1,000 ml @ 100 mls/hr Q10H IV Last administered on 12/27/18at 03 :54; Start 12/26/18 at 16:00 Gadobutrol (Gadavist) 9 mmol 1X ONCE IV Last administered on 12/26/18at 16:30; Start 12/26/18 at 16:30; Stop 12/26/18 at 16:31; Status DC Active Scripts Active [place] 5-325 Tablet (Acetaminophen/Hydrocodone Bitart) 1 Each Tablet 1 Tab PO Q6HRS Diclofenac Sodium 50 Mg Tablet.dr 1 Tab PO BID Cyclobenzaprine Hcl 10 Mg Tablet 1 Tab PO TID PRN Allergies Allergies: Coded Allergies: No Known Drug Allergies (Unverified , 10/25/18) ROS General: No: Chills, Night Sweats, Fatigue, Malaise, Appetite, Other PSYCHOLOGICAL ROS: No: Anxiety, Behavioral Disorder, Concentration difficultie , Decreased libido, Depression, Disorientation, Hallucinations, Hostility, Irritablity, Memory difficulties, Mood Swings, Obsessive thoughts, Physical abuse, Sexual abuse, Sleep disturbances, Suicidal ideation, Other Eyes: No Blurry vision, No Decreased vision, No Double vision, No Dry eyes, No Excessive tearing, No Eye Pain, No Itchy Eyes, No Loss of vision, No Photophobia , No Scotomata, No Uses contacts, No Uses glasses, No Other HEENT: No: Heacaches, Visual Changes, Hearing change, Nasal congestion, Nasal discharge, Oral lesions, Sinus pain, Sore Throat, Epistaxis, Sneezing, Snoring, Tinnitus, Vertigo, Vocal changes, Other ALLERGY AND IMMUNOLOGY: No: Hives, Insect Bite Sensitivity, Itchy/Watery Eyes, Nasal Congestion, Post Nasal Drip, Seasonal Allergies, Other Hematological and Lymphatic: No: Bleeding Problems, Blood Clots, Blood Transfusions, Brusing, Night Sweats, Pallor, Swollen Lymph Nodes, Other ENDOCRINE: No: Breast Changes, Galactorrhea, Hair Pattern Changes, Hot Flashes , Malaise/lethargy, Mood Swings, Palpitations, Polydipsia/polyuria, Skin Changes , Temperature Intolerance, Unexpected Weight Changes, Other Respiratory: No: Cough, Hemoptysis, Orthopnea, Pleuritic Pain, Shortness of breath, SOB with excertion, Sputum Changes, Stridor, Tachypnea, Wheezing, Other Cardiovascular: No Chest Pain, No Palpitations, No Orthopnea, No Paroxysmal Noc. Dyspnea, No Edema, No Lt Headedness, No Other Gastrointestinal: No Nausea, No Vomiting, No Abdominal Pain, No Diarrhea, No Constipation, No Melena, No Hematochezia, No Other Genitourinary: No Dysuria, No Frequency, No Incontinence, No Hematuria, No Retention, No Discharge, No Urgency, No Pain, No Flank Pain, No Other, No , No , No , No , No , No , No Musculoskeletal: Yes Gait Disturbance, Yes Pain In: (right leg) Physical Exam General: Alert, Oriented X3 HEENT: Atraumatic, EOMI Lungs: Other (respirations are unlabored with symmetric chest rise) Heart: Regular rate Abdomen: Soft, No tenderness Extremities: No edema (in left lower extremity, large amount of edema entire right lower extremity), Normal pulses Skin: No rashes Neuro: Normal speech, Strength at 5/5 X4 ext, Sensation intact Psych/Mental Status: Mental status NL, Mood NL MUSCULOSKELETAL: Other (patient has a very large amount of swelling from his right inguinal region to the dorsum of his foot.) Vitals VITALS Vital Signs Date Time Temp Pulse Resp B/P (MAP) Pulse Ox O2 Delivery O2 Flow Rate FiO2 12/27/18 08:52 98 Room Air 12/27/18 07:00 98.1 87 16 141/70 (93) 98.1 Labs Labs Laboratory Tests Test 12/26/18 15:00 12/27/18 05:27 White Blood Count 6.7 x10^3/uL (4.0-11.0) 5.6 x10^3/uL (4.0-11.0) Red Blood Count 4.89 x10^6/uL (4.30-5.70) 4.98 x10^6/uL (4.30-5.70) Hemoglobin 12.9 g/dL (13.0-17.5) 13.2 g/dL (13.0-17.5) Hematocrit 39.9 % (39.0-53.0) 40.7 % (39.0-53.0) Mean Corpuscular Volume 82 fL (79-100) 82 fL (79-100) Mean Corpuscular Hemoglobin 26 pg (25-35) 27 pg (25-35) Mean Corpuscular Hemoglobin Concent 32 g/dL (31-37) 33 g/dL (31-37) Red Cell Distribution Width 16.6 % (11.5-14.5) 16.4 % (11.5-14.5) Platelet Count 308 x10^3/uL (140-400) 321 x10^3/uL (140-400) Neutrophils (%) (Auto) 70 % (31-73) 64 % (31-73) Lymphocytes (%) (Auto) 12 % (24-48) 14 % (24-48) Monocytes (%) (Auto) 12 % (0-9) 17 % (0-9) Eosinophils (%) (Auto) 5 % (0-3) 6 % (0-3) Basophils (%) (Auto) 2 % (0-3) 0 % (0-3) Neutrophils # (Auto) 4.7 x10^3uL (1.8-7.7) 3.6 x10^3uL (1.8-7.7) Lymphocytes # (Auto) 0.8 x10^3/uL (1.0-4.8) 0.8 x10^3/uL (1.0-4.8) Monocytes # (Auto) 0.8 x10^3/uL (0.0-1.1) 0.9 x10^3/uL (0.0-1.1) Eosinophils # (Auto) 0.4 x10^3/uL (0.0-0.7) 0.3 x10^3/uL (0.0-0.7) Basophils # (Auto) 0.1 x10^3/uL (0.0-0.2) 0.0 x10^3/uL (0.0-0.2) Sodium Level 139 mmol/L (136-145) 140 mmol/L (136-145) Potassium Level 3.9 mmol/L (3.5-5.1) 4.2 mmol/L (3.5-5.1) Chloride Level 102 mmol/L (98-107) 103 mmol/L (98-107) Carbon Dioxide Level 27 mmol/L (21-32) 29 mmol/L (21-32) Anion Gap 10 (6-14) 8 (6-14) Blood Urea Nitrogen 15 mg/dL (8-26) 14 mg/dL (8-26) Creatinine 1.2 mg/dL (0.7-1.3) 0.9 mg/dL (0.7-1.3) Estimated GFR (Cockcroft-Gault) 90.0 125.4 BUN/Creatinine Ratio 13 (6-20) Glucose Level 96 mg/dL (70-99) 89 mg/dL (70-99) Calcium Level 8.4 mg/dL (8.5-10.1) 8.4 mg/dL (8.5-10.1) Total Bilirubin 0.4 mg/dL (0.2-1.0) Aspartate Amino Transf (AST/SGOT) 28 U/L (15-37) Alanine Aminotransferase (ALT/SGPT) 34 U/L (16-63) Alkaline Phosphatase 62 U/L (46-116) Lactate Dehydrogenase 316 U/L (85-227) Total Protein 7.2 g/dL (6.4-8.2) Albumin 3.2 g/dL (3.4-5.0) Albumin/Globulin Ratio 0.8 (1.0-1.7) Thyroid Stimulating Hormone (TSH) 0.377 uIU/mL (0.358-3.74) Laboratory Tests Test 12/26/18 15:00 12/27/18 05:27 White Blood Count 6.7 x10^3/uL (4.0-11.0) 5.6 x10^3/uL (4.0-11.0) Red Blood Count 4.89 x10^6/uL (4.30-5.70) 4.98 x10^6/uL (4.30-5.70) Hemoglobin 12.9 g/dL (13.0-17.5) 13.2 g/dL (13.0-17.5) Hematocrit 39.9 % (39.0-53.0) 40.7 % (39.0-53.0) Mean Corpuscular Volume 82 fL (79-100) 82 fL (79-100) Mean Corpuscular Hemoglobin 26 pg (25-35) 27 pg (25-35) Mean Corpuscular Hemoglobin Concent 32 g/dL (31-37) 33 g/dL (31-37) Red Cell Distribution Width 16.6 % (11.5-14.5) 16.4 % (11.5-14.5) Platelet Count 308 x10^3/uL (140-400) 321 x10^3/uL (140-400) Neutrophils (%) (Auto) 70 % (31-73) 64 % (31-73) Lymphocytes (%) (Auto) 12 % (24-48) 14 % (24-48) Monocytes (%) (Auto) 12 % (0-9) 17 % (0-9) Eosinophils (%) (Auto) 5 % (0-3) 6 % (0-3) Basophils (%) (Auto) 2 % (0-3) 0 % (0-3) Neutrophils # (Auto) 4.7 x10^3uL (1.8-7.7) 3.6 x10^3uL (1.8-7.7) Lymphocytes # (Auto) 0.8 x10^3/uL (1.0-4.8) 0.8 x10^3/uL (1.0-4.8) Monocytes # (Auto) 0.8 x10^3/uL (0.0-1.1) 0.9 x10^3/uL (0.0-1.1) Eosinophils # (Auto) 0.4 x10^3/uL (0.0-0.7) 0.3 x10^3/uL (0.0-0.7) Basophils # (Auto) 0.1 x10^3/uL (0.0-0.2) 0.0 x10^3/uL (0.0-0.2) Sodium Level 139 mmol/L (136-145) 140 mmol/L (136-145) Potassium Level 3.9 mmol/L (3.5-5.1) 4.2 mmol/L (3.5-5.1) Chloride Level 102 mmol/L (98-107) 103 mmol/L (98-107) Carbon Dioxide Level 27 mmol/L (21-32) 29 mmol/L (21-32) Anion Gap 10 (6-14) 8 (6-14) Blood Urea Nitrogen 15 mg/dL (8-26) 14 mg/dL (8-26) Creatinine 1.2 mg/dL (0.7-1.3) 0.9 mg/dL (0.7-1.3) Estimated GFR (Cockcroft-Gault) 90.0 125.4 BUN/Creatinine Ratio 13 (6-20) Glucose Level 96 mg/dL (70-99) 89 mg/dL (70-99) Calcium Level 8.4 mg/dL (8.5-10.1) 8.4 mg/dL (8.5-10.1) Total Bilirubin 0.4 mg/dL (0.2-1.0) Aspartate Amino Transf (AST/SGOT) 28 U/L (15-37) Alanine Aminotransferase (ALT/SGPT) 34 U/L (16-63) Alkaline Phosphatase 62 U/L (46-116) Lactate Dehydrogenase 316 U/L (85-227) Total Protein 7.2 g/dL (6.4-8.2) Albumin 3.2 g/dL (3.4-5.0) Albumin/Globulin Ratio 0.8 (1.0-1.7) Thyroid Stimulating Hormone (TSH) 0.377 uIU/mL (0.358-3.74) Images Images Imaging was reviewed. Vascular and oncology notes were reviewed. Assessment/Plan Assessment/Plan I was asked to see this gentleman to perform a lymph node biopsy. This is not necessarily a procedure orthopedics typically perform speed I recommend asking general surgery to assist in obtaining an appropriate tissue sample. I did discuss lymphedema treatments with the patient and he would be opened these. I will order occupational therapy consult for lymphedema. TAE ORTEGA II, MD Dec 27, 2018 09:01
[2018-12-27 11:00] VITALS: BP 131/81
--- NOTE | 2018-12-27 11:59 | RAD ---
MR of the musculoskeletal pelvis HISTORY: Worsening pain and swelling of the right leg, pain for [address] scan performed the same day demonstrated right pelvic and inguinal deepthi masses, edema and pathology at the proximal right femur. TECHNIQUE: Axial, sagittal and coronal T1-weighted, T2 fat suppressed and postcontrast T1 fat-suppressed images were obtained through the musculoskeletal pelvis. COMPARISON: CT pelvis exam of the same day. FINDINGS: Large mass identified within the right pelvis, in the right iliac region is again identified. This mass in aggregate measures about 11 cm AP by 6 cm wide. Superiorly, this extends above the [id number] above the lumbosacral junction level, and is associated with the medial aspect of the iliopsoas muscles. A portion of the mass encases the right iliac vessels. Distally the mass extends into the upper thigh, surrounding the iliofemoral vessels. The mass results in mass effect with leftward effacements of the urinary bladder. The mass contacts urinary bladder. No evidence of urinary bladder wall thickening. There are some enlarged right inguinal lymph nodes, as was also seen on the CT scan, measuring up to 3.0 x 1.8 cm. There is another mass surrounding the proximal right femur measuring about 9.3 cm AP by 8.4 cm wide by 12.5 cm cephalocaudal. There is diffuse abnormal marrow infiltration within the proximal femur extending into the upper shaft. The cephalocaudal extent of marrow involvement is 17.5 cm. This involves the proximal shaft through the femoral head. Only a very small superior most aspect of the femoral head is spared. No displaced fracture is seen at this time. There is a smaller soft tissue mass just posterior to this, just posterior to the femoral trochanter, measuring 5.0 x 2.8 cm, along the anterior gluteus leonie muscle. There is diffuse intramuscular edema with mild intramuscular enhancement at the visualized proximal thigh. There is subcutaneous edema and mild intermuscular fluid and enhancement. No other significant bone lesions are seen. There is a small right hip joint effusion. Sacroiliac joints appear intact. No significant left hip joint effusion. IMPRESSION: 1. Multiple soft tissue masses identified in the right pelvis, inguinal region, gluteal region and around the proximal right femur, most concerning for malignant etiology. Consider deepthi metastases, lymphoma or soft tissue sarcoma. 2. There is extensive abnormal marrow infiltrative signal of the proximal right femur. This could be secondary neoplastic marrow infiltration due to soft tissue mass, versus primary marrow pathology with soft tissue component such as lymphoma. Patient could be a pathologic fracture risk. 3. The pelvic and inguinal mass involves and encases the iliofemoral vessels. Cannot confirm patency of these vessels. 4. Diffuse intramuscular and intermuscular edema/enhancement extending into the proximal thigh. 5. These findings concur with the preliminary report provided by a different radiologist following the scan. Electronically signed by: Alexandru Beltran MD (12/27/2018 11:56 AM) [id number]
[2018-12-27] MEDS: ENOXAPARIN 40 MG/0.4 ML SYRINGE. SQ SCH (13:11)
--- NOTE | 2018-12-27 13:15 | NUR ---
Enoxaparin held, pending surgery scheduled for morning 12/28/18.
--- NOTE | 2018-12-27 13:15 | PDOC2 ---
JUDY MEDRANO Alayna WELLNESS NURSE 12/27/18 1315: CONSULT Date of Consult Date of Consult DATE: 12/27/18 TIME: 13:01 Reason for Consult Reason for Consult: lymph node biopsy Referring Physician Referring Physician: Dr Webb Identification/Chief Complaint Chief Complaint leg swelling Source Source: Chart review, Patient History of Present Illness Reason for Visit: Swelling issues to right leg for several months. Evaluated for orthopedic and clot issues, found to be negative. Admitted for ongoing workup and CT/US showed several enlarged lymph nodes --MRI/ CT/US findings concerning for 1. Multiple soft tissue masses identified in the right pelvis, inguinal region, gluteal region and around the proximal right femur, most concerning for malignant etiology. Consider deepthi metastases, lymphoma or soft tissue sarcoma. Surgery consult for lymph node biopsy, oncology note reviewed, request excisional lymph node biopsy Past Medical History Cardiovascular: No pertinent hx Pulmonary: No pertinent hx GI: No pertinent hx Heme/Onc: No pertinent hx Hepatobiliary: No pertinent hx Psych: No pertinent hx Rheumatologic: No pertinent hx Infectious disease: No pertinent hx ENT: No pertinent hx Renal/: No pertinent hx Endocrine: No pertinent hx Dermatology: No pertinent hx Past Surgical History Past Surgical History: No pertinent history Family History Family History: Cancer, Diabetes Social History <1 pack per day (4-5 cigarettes per day) ALCOHOL: occassional Drugs: None Current Medications Current Medications Current Medications Acetaminophen/ Hydrocodone Bitart (Lortab 5/325) 1 tab PRN Q4HRS PRN PO MILD PAIN Last administered on 12/26/18at 14:20; Start 12/26/18 at 13:15 Acetaminophen/ Hydrocodone Bitart (Lortab 5/325) 2 tab PRN Q4HRS PRN PO MODERATE PAIN, SEVERE PAIN Last administered on 12/27/18at 08:52; Start 12/26/18 at 13:15 Enoxaparin Sodium (Lovenox 40mg Syringe) 40 mg Q24H SQ Last administered on 12/26at 14:26; Start 12/26/18 at 14:00 Iohexol (Omnipaque 300 Mg/ml) 75 ml 1X ONCE IV Last administered on 12/26/18at 16:00; Start 12/26/18 at 15:00; Stop 12/26/18 at 15:01; Status DC Iohexol (Omnipaque 240 Mg/ml) 30 ml 1X ONCE PO Last administered on 12/26/18at 15:00; Start 12/26/18 at 15:00; Stop 12/26/18 at 15:01; Status DC Info (CONTRAST GIVEN -- Rx MONITORING) 1 each PRN DAILY PRN MC SEE COMMENTS; Start 12/26/18 at 15:00; Stop 12/28/18 at 14:59 Sodium Chloride 1,000 ml @ 100 mls/hr Q10H IV Last administered on 12/27/18at 03 :54; Start 12/26/18 at 16:00 Gadobutrol (Gadavist) 9 mmol 1X ONCE IV Last administered on 12/26/18at 16:30; Start 12/26/18 at 16:30; Stop 12/26/18 at 16:31; Status DC Active Scripts Active [place] 5-325 Tablet (Acetaminophen/Hydrocodone Bitart) 1 Each Tablet 1 Tab PO Q6HRS Diclofenac Sodium 50 Mg Tablet.dr 1 Tab PO BID Cyclobenzaprine Hcl 10 Mg Tablet 1 Tab PO TID PRN Allergies Allergies: Coded Allergies: No Known Drug Allergies (Unverified , 10/25/18) ROS General: YES: Other (weight gain); No: Chills PSYCHOLOGICAL ROS: No: Anxiety, Depression Eyes: No Blurry vision, No Double vision HEENT: No: Heacaches, Sore Throat Hematological and Lymphatic: No: Bleeding Problems, Blood Clots Respiratory: No: Cough, Shortness of breath Gastrointestinal: No Nausea, No Vomiting Genitourinary: No Dysuria, No Hematuria Neurological: Yes Impaired Coord/balance, Yes Numbness/Tingling Skin: Yes Other (see hpi) Physical Exam General: Alert, Oriented X3, Cooperative, No acute distress HEENT: PERRLA, Mucous membr. moist/pink Lungs: Clear to auscultation, Normal air movement Heart: Regular rate, Normal S1, Normal S2, No murmurs Abdomen: Soft, No tenderness Extremities: Other (RLE with significant edema and swelling, 2 -3 + pitting edema, right groin with firmness to area and swelling ) Neuro: Normal speech Psych/Mental Status: Mental status NL, Mood NL Vitals VITALS Vital Signs Date Time Temp Pulse Resp B/P (MAP) Pulse Ox O2 Delivery O2 Flow Rate FiO2 12/27/18 11:00 98.4 64 17 131/81 (98) 97 Room Air 98.4 Labs Labs Laboratory Tests Test 12/26/18 15:00 12/27/18 05:27 White Blood Count 6.7 x10^3/uL (4.0-11.0) 5.6 x10^3/uL (4.0-11.0) Red Blood Count 4.89 x10^6/uL (4.30-5.70) 4.98 x10^6/uL (4.30-5.70) Hemoglobin 12.9 g/dL (13.0-17.5) 13.2 g/dL (13.0-17.5) Hematocrit 39.9 % (39.0-53.0) 40.7 % (39.0-53.0) Mean Corpuscular Volume 82 fL (79-100) 82 fL (79-100) Mean Corpuscular Hemoglobin 26 pg (25-35) 27 pg (25-35) Mean Corpuscular Hemoglobin Concent 32 g/dL (31-37) 33 g/dL (31-37) Red Cell Distribution Width 16.6 % (11.5-14.5) 16.4 % (11.5-14.5) Platelet Count 308 x10^3/uL (140-400) 321 x10^3/uL (140-400) Neutrophils (%) (Auto) 70 % (31-73) 64 % (31-73) Lymphocytes (%) (Auto) 12 % (24-48) 14 % (24-48) Monocytes (%) (Auto) 12 % (0-9) 17 % (0-9) Eosinophils (%) (Auto) 5 % (0-3) 6 % (0-3) Basophils (%) (Auto) 2 % (0-3) 0 % (0-3) Neutrophils # (Auto) 4.7 x10^3uL (1.8-7.7) 3.6 x10^3uL (1.8-7.7) Lymphocytes # (Auto) 0.8 x10^3/uL (1.0-4.8) 0.8 x10^3/uL (1.0-4.8) Monocytes # (Auto) 0.8 x10^3/uL (0.0-1.1) 0.9 x10^3/uL (0.0-1.1) Eosinophils # (Auto) 0.4 x10^3/uL (0.0-0.7) 0.3 x10^3/uL (0.0-0.7) Basophils # (Auto) 0.1 x10^3/uL (0.0-0.2) 0.0 x10^3/uL (0.0-0.2) Sodium Level 139 mmol/L (136-145) 140 mmol/L (136-145) Potassium Level 3.9 mmol/L (3.5-5.1) 4.2 mmol/L (3.5-5.1) Chloride Level 102 mmol/L (98-107) 103 mmol/L (98-107) Carbon Dioxide Level 27 mmol/L (21-32) 29 mmol/L (21-32) Anion Gap 10 (6-14) 8 (6-14) Blood Urea Nitrogen 15 mg/dL (8-26) 14 mg/dL (8-26) Creatinine 1.2 mg/dL (0.7-1.3) 0.9 mg/dL (0.7-1.3) Estimated GFR (Cockcroft-Gault) 90.0 125.4 BUN/Creatinine Ratio 13 (6-20) Glucose Level 96 mg/dL (70-99) 89 mg/dL (70-99) Calcium Level 8.4 mg/dL (8.5-10.1) 8.4 mg/dL (8.5-10.1) Total Bilirubin 0.4 mg/dL (0.2-1.0) Aspartate Amino Transf (AST/SGOT) 28 U/L (15-37) Alanine Aminotransferase (ALT/SGPT) 34 U/L (16-63) Alkaline Phosphatase 62 U/L (46-116) Lactate Dehydrogenase 316 U/L (85-227) Total Protein 7.2 g/dL (6.4-8.2) Albumin 3.2 g/dL (3.4-5.0) Albumin/Globulin Ratio 0.8 (1.0-1.7) Thyroid Stimulating Hormone (TSH) 0.377 uIU/mL (0.358-3.74) Laboratory Tests Test 12/26/18 15:00 12/27/18 05:27 White Blood Count 6.7 x10^3/uL (4.0-11.0) 5.6 x10^3/uL (4.0-11.0) Red Blood Count 4.89 x10^6/uL (4.30-5.70) 4.98 x10^6/uL (4.30-5.70) Hemoglobin 12.9 g/dL (13.0-17.5) 13.2 g/dL (13.0-17.5) Hematocrit 39.9 % (39.0-53.0) 40.7 % (39.0-53.0) Mean Corpuscular Volume 82 fL (79-100) 82 fL (79-100) Mean Corpuscular Hemoglobin 26 pg (25-35) 27 pg (25-35) Mean Corpuscular Hemoglobin Concent 32 g/dL (31-37) 33 g/dL (31-37) Red Cell Distribution Width 16.6 % (11.5-14.5) 16.4 % (11.5-14.5) Platelet Count 308 x10^3/uL (140-400) 321 x10^3/uL (140-400) Neutrophils (%) (Auto) 70 % (31-73) 64 % (31-73) Lymphocytes (%) (Auto) 12 % (24-48) 14 % (24-48) Monocytes (%) (Auto) 12 % (0-9) 17 % (0-9) Eosinophils (%) (Auto) 5 % (0-3) 6 % (0-3) Basophils (%) (Auto) 2 % (0-3) 0 % (0-3) Neutrophils # (Auto) 4.7 x10^3uL (1.8-7.7) 3.6 x10^3uL (1.8-7.7) Lymphocytes # (Auto) 0.8 x10^3/uL (1.0-4.8) 0.8 x10^3/uL (1.0-4.8) Monocytes # (Auto) 0.8 x10^3/uL (0.0-1.1) 0.9 x10^3/uL (0.0-1.1) Eosinophils # (Auto) 0.4 x10^3/uL (0.0-0.7) 0.3 x10^3/uL (0.0-0.7) Basophils # (Auto) 0.1 x10^3/uL (0.0-0.2) 0.0 x10^3/uL (0.0-0.2) Sodium Level 139 mmol/L (136-145) 140 mmol/L (136-145) Potassium Level 3.9 mmol/L (3.5-5.1) 4.2 mmol/L (3.5-5.1) Chloride Level 102 mmol/L (98-107) 103 mmol/L (98-107) Carbon Dioxide Level 27 mmol/L (21-32) 29 mmol/L (21-32) Anion Gap 10 (6-14) 8 (6-14) Blood Urea Nitrogen 15 mg/dL (8-26) 14 mg/dL (8-26) Creatinine 1.2 mg/dL (0.7-1.3) 0.9 mg/dL (0.7-1.3) Estimated GFR (Cockcroft-Gault) 90.0 125.4 BUN/Creatinine Ratio 13 (6-20) Glucose Level 96 mg/dL (70-99) 89 mg/dL (70-99) Calcium Level 8.4 mg/dL (8.5-10.1) 8.4 mg/dL (8.5-10.1) Total Bilirubin 0.4 mg/dL (0.2-1.0) Aspartate Amino Transf (AST/SGOT) 28 U/L (15-37) Alanine Aminotransferase (ALT/SGPT) 34 U/L (16-63) Alkaline Phosphatase 62 U/L (46-116) Lactate Dehydrogenase 316 U/L (85-227) Total Protein 7.2 g/dL (6.4-8.2) Albumin 3.2 g/dL (3.4-5.0) Albumin/Globulin Ratio 0.8 (1.0-1.7) Thyroid Stimulating Hormone (TSH) 0.377 uIU/mL (0.358-3.74) Assessment/Plan Assessment/Plan Right leg swelling, lymphadenopathy Imaging concerning for 1. Multiple soft tissue masses identified in the right pelvis, inguinal region, gluteal region and around the proximal right femur, most concerning for malignant etiology. Consider deepthi metastases, lymphoma or soft tissue sarcoma. Reviewed with Dr Mcginnis Tentatively planned for right groin lymph node biopsy tomorrow hold surendra, ABEO after mn IONA MCGINNIS MD 12/28/18 0916: CONSULT Assessment/Plan Assessment/Plan Patient seen and examined by me. Resting comfortably in bed planes of swollen right leg. Multiple enlarged right groin adenopathy tender to palpation plan for excisional biopsy. Agree with Frias assessment and plan JUDY MEDRANO APRN Dec 27, 2018 13:15 IONA MCGINNIS MD Dec 28, 2018 09:16
--- NOTE | 2018-12-27 13:24 | PDOC ---
PROGRESS NOTES Subjective Subjective Patient continue to have leg swelling and pain. Consult noted appreciated. Objective Objective Vital Signs Date Time Temp Pulse Resp B/P (MAP) Pulse Ox O2 Delivery O2 Flow Rate FiO2 12/27/18 11:00 98.4 64 17 131/81 (98) 97 Room Air 98.4 Intake and Output 12/27/18 07:00 Intake Total 860 ml Balance 860 ml Intake Oral 860 ml # Voids 6 Physical Exam Abdomen: Normal bowel sounds Heart: Regular rate Extremities: Other (massive lymphedema right leg) General: Alert Lungs: Clear to auscultation Assessment Assessment 1. Intractable right lower extremity pain. 2. Mobility deficit. 3. Lymphedema. 4. Lymphadenopathy 5. Suspected lymphoma vs sarcoma right inguinal area Plan Plan of Care Consult surgery Lymph node BX in AM Comment Review of Relevant I have reviewed the following items colleen (where applicable) has been applied. Labs Laboratory Tests Test 12/26/18 15:00 12/27/18 05:27 White Blood Count 6.7 x10^3/uL (4.0-11.0) 5.6 x10^3/uL (4.0-11.0) Red Blood Count 4.89 x10^6/uL (4.30-5.70) 4.98 x10^6/uL (4.30-5.70) Hemoglobin 12.9 g/dL (13.0-17.5) 13.2 g/dL (13.0-17.5) Hematocrit 39.9 % (39.0-53.0) 40.7 % (39.0-53.0) Mean Corpuscular Volume 82 fL (79-100) 82 fL (79-100) Mean Corpuscular Hemoglobin 26 pg (25-35) 27 pg (25-35) Mean Corpuscular Hemoglobin Concent 32 g/dL (31-37) 33 g/dL (31-37) Red Cell Distribution Width 16.6 % (11.5-14.5) 16.4 % (11.5-14.5) Platelet Count 308 x10^3/uL (140-400) 321 x10^3/uL (140-400) Neutrophils (%) (Auto) 70 % (31-73) 64 % (31-73) Lymphocytes (%) (Auto) 12 % (24-48) 14 % (24-48) Monocytes (%) (Auto) 12 % (0-9) 17 % (0-9) Eosinophils (%) (Auto) 5 % (0-3) 6 % (0-3) Basophils (%) (Auto) 2 % (0-3) 0 % (0-3) Neutrophils # (Auto) 4.7 x10^3uL (1.8-7.7) 3.6 x10^3uL (1.8-7.7) Lymphocytes # (Auto) 0.8 x10^3/uL (1.0-4.8) 0.8 x10^3/uL (1.0-4.8) Monocytes # (Auto) 0.8 x10^3/uL (0.0-1.1) 0.9 x10^3/uL (0.0-1.1) Eosinophils # (Auto) 0.4 x10^3/uL (0.0-0.7) 0.3 x10^3/uL (0.0-0.7) Basophils # (Auto) 0.1 x10^3/uL (0.0-0.2) 0.0 x10^3/uL (0.0-0.2) Sodium Level 139 mmol/L (136-145) 140 mmol/L (136-145) Potassium Level 3.9 mmol/L (3.5-5.1) 4.2 mmol/L (3.5-5.1) Chloride Level 102 mmol/L (98-107) 103 mmol/L (98-107) Carbon Dioxide Level 27 mmol/L (21-32) 29 mmol/L (21-32) Anion Gap 10 (6-14) 8 (6-14) Blood Urea Nitrogen 15 mg/dL (8-26) 14 mg/dL (8-26) Creatinine 1.2 mg/dL (0.7-1.3) 0.9 mg/dL (0.7-1.3) Estimated GFR (Cockcroft-Gault) 90.0 125.4 BUN/Creatinine Ratio 13 (6-20) Glucose Level 96 mg/dL (70-99) 89 mg/dL (70-99) Calcium Level 8.4 mg/dL (8.5-10.1) 8.4 mg/dL (8.5-10.1) Total Bilirubin 0.4 mg/dL (0.2-1.0) Aspartate Amino Transf (AST/SGOT) 28 U/L (15-37) Alanine Aminotransferase (ALT/SGPT) 34 U/L (16-63) Alkaline Phosphatase 62 U/L (46-116) Lactate Dehydrogenase 316 U/L (85-227) Total Protein 7.2 g/dL (6.4-8.2) Albumin 3.2 g/dL (3.4-5.0) Albumin/Globulin Ratio 0.8 (1.0-1.7) Thyroid Stimulating Hormone (TSH) 0.377 uIU/mL (0.358-3.74) Laboratory Tests Test 12/26/18 15:00 12/27/18 05:27 White Blood Count 6.7 x10^3/uL (4.0-11.0) 5.6 x10^3/uL (4.0-11.0) Red Blood Count 4.89 x10^6/uL (4.30-5.70) 4.98 x10^6/uL (4.30-5.70) Hemoglobin 12.9 g/dL (13.0-17.5) 13.2 g/dL (13.0-17.5) Hematocrit 39.9 % (39.0-53.0) 40.7 % (39.0-53.0) Mean Corpuscular Volume 82 fL (79-100) 82 fL (79-100) Mean Corpuscular Hemoglobin 26 pg (25-35) 27 pg (25-35) Mean Corpuscular Hemoglobin Concent 32 g/dL (31-37) 33 g/dL (31-37) Red Cell Distribution Width 16.6 % (11.5-14.5) 16.4 % (11.5-14.5) Platelet Count 308 x10^3/uL (140-400) 321 x10^3/uL (140-400) Neutrophils (%) (Auto) 70 % (31-73) 64 % (31-73) Lymphocytes (%) (Auto) 12 % (24-48) 14 % (24-48) Monocytes (%) (Auto) 12 % (0-9) 17 % (0-9) Eosinophils (%) (Auto) 5 % (0-3) 6 % (0-3) Basophils (%) (Auto) 2 % (0-3) 0 % (0-3) Neutrophils # (Auto) 4.7 x10^3uL (1.8-7.7) 3.6 x10^3uL (1.8-7.7) Lymphocytes # (Auto) 0.8 x10^3/uL (1.0-4.8) 0.8 x10^3/uL (1.0-4.8) Monocytes # (Auto) 0.8 x10^3/uL (0.0-1.1) 0.9 x10^3/uL (0.0-1.1) Eosinophils # (Auto) 0.4 x10^3/uL (0.0-0.7) 0.3 x10^3/uL (0.0-0.7) Basophils # (Auto) 0.1 x10^3/uL (0.0-0.2) 0.0 x10^3/uL (0.0-0.2) Sodium Level 139 mmol/L (136-145) 140 mmol/L (136-145) Potassium Level 3.9 mmol/L (3.5-5.1) 4.2 mmol/L (3.5-5.1) Chloride Level 102 mmol/L (98-107) 103 mmol/L (98-107) Carbon Dioxide Level 27 mmol/L (21-32) 29 mmol/L (21-32) Anion Gap 10 (6-14) 8 (6-14) Blood Urea Nitrogen 15 mg/dL (8-26) 14 mg/dL (8-26) Creatinine 1.2 mg/dL (0.7-1.3) 0.9 mg/dL (0.7-1.3) Estimated GFR (Cockcroft-Gault) 90.0 125.4 BUN/Creatinine Ratio 13 (6-20) Glucose Level 96 mg/dL (70-99) 89 mg/dL (70-99) Calcium Level 8.4 mg/dL (8.5-10.1) 8.4 mg/dL (8.5-10.1) Total Bilirubin 0.4 mg/dL (0.2-1.0) Aspartate Amino Transf (AST/SGOT) 28 U/L (15-37) Alanine Aminotransferase (ALT/SGPT) 34 U/L (16-63) Alkaline Phosphatase 62 U/L (46-116) Lactate Dehydrogenase 316 U/L (85-227) Total Protein 7.2 g/dL (6.4-8.2) Albumin 3.2 g/dL (3.4-5.0) Albumin/Globulin Ratio 0.8 (1.0-1.7) Thyroid Stimulating Hormone (TSH) 0.377 uIU/mL (0.358-3.74) Medications Current Medications Acetaminophen/ Hydrocodone Bitart (Lortab 5/325) 1 tab PRN Q4HRS PRN PO MILD PAIN Last administered on 12/26/18 14:20; Start 12/26/18 at 13:15 Acetaminophen/ Hydrocodone Bitart (Lortab 5/325) 2 tab PRN Q4HRS PRN PO MODERATE PAIN, SEVERE PAIN Last administered on 12/27/18 08:52; Start 12/26/18 at 13:15 Enoxaparin Sodium (Lovenox 40mg Syringe) 40 mg Q24H SQ Last administered on 12/26 14:26; Start 12/26/18 at 14:00 Iohexol (Omnipaque 300 Mg/ml) 75 ml 1X ONCE IV Last administered on 12/26/18 16:00; Start 12/26/18 at 15:00; Stop 12/26/18 at 15:01; Status DC Iohexol (Omnipaque 240 Mg/ml) 30 ml 1X ONCE PO Last administered on 12/26/18 15:00; Start 12/26/18 at 15:00; Stop 12/26/18 at 15:01; Status DC Info (CONTRAST GIVEN -- Rx MONITORING) 1 each PRN DAILY PRN MC SEE COMMENTS; Start 12/26/18 at 15:00; Stop 12/28/18 at 14:59 Sodium Chloride 1,000 ml @ 100 mls/hr Q10H IV Last administered on 12/27/18 13 :20; Start 12/26/18 at 16:00 Gadobutrol (Gadavist) 9 mmol 1X ONCE IV Last administered on 12/26/18 16:30; Start 12/26/18 at 16:30; Stop 12/26/18 at 16:31; Status DC Active Scripts Active [place] 5-325 Tablet (Acetaminophen/Hydrocodone Bitart) 1 Each Tablet 1 Tab PO Q6HRS Diclofenac Sodium 50 Mg Tablet. 1 Tab PO BID Cyclobenzaprine Hcl 10 Mg Tablet 1 Tab PO TID PRN Vitals/I & O Vital Sign - Last 24 Hours 12/26/18 12/26/18 12/26/18 12/26/18 14:20 15:00 15:20 18:36 Temp 98.4 98.4 Pulse 86 Resp 18 16 18 B/P (MAP) 111/72 (85) Pulse Ox 96 O2 Delivery Room Air Room Air Room Air Room Air 12/26/18 12/26/18 12/26/18 12/26/18 19:00 19:00 19:51 22:51 Temp 98.2 98.2 98.2 98.2 Pulse 84 84 Resp 16 16 B/P (MAP) 115/69 (84) 115/69 (84) Pulse Ox 100 100 O2 Delivery Room Air Room Air Room Air 12/26/18 12/27/18 12/27/18 12/27/18 23:00 03:00 03:53 07:00 Temp 98.2 98.6 98.1 98.2 98.6 98.1 Pulse 75 78 87 Resp 18 16 16 B/P (MAP) 139/76 (97) 122/69 (86) 141/70 (93) Pulse Ox 98 99 98 O2 Delivery Room Air Room Air Room Air 12/27/18 12/27/18 12/27/18 08:52 09:52 11:00 Temp 98.4 98.4 Pulse 64 Resp 17 B/P (MAP) 131/81 (98) Pulse Ox 98 98 97 O2 Delivery Room Air Room Air Room Air Intake and Output 12/26/18 12/26/18 12/27/18 15:00 23:00 07:00 Intake Total 200 ml 660 ml Balance 200 ml 660 ml ZAN PAK MD Dec 27, 2018 13:24
--- NOTE | 2018-12-27 13:50 | NUR ---
SW following for discharge planning. Discussed with RN, pt having a biopsy tomorrow morning (12/28/18). SW will continue to follow.
[2018-12-27 15:00] VITALS: BP 129/73
[2018-12-27 19:00] VITALS: BP 122/87
[2018-12-27] MEDS ORDERED: ALPRAZolam 0.5 MG TABLET PO PRN (19:15)
[2018-12-27] MEDS: NICOTINE 14MG PATCH. TD PRN (19:32)
[2018-12-27 22:58] VITALS: BP 119/71
[2018-12-28 03:00] VITALS: BP 128/81
[2018-12-28] MEDS: HYDROcodone/APAP 5/325MG 1 TAB TABLET PO PRN ×2 (05:55→21:53)
[2018-12-28] MEDS ORDERED: IV RINGERS,LACTATED 1000ML 1,000 ML IV SCH (07:00)
[2018-12-28] MEDS ORDERED: ONDANSETRON PF 4 MG/2 ML VIAL. IV PRN (07:00)
[2018-12-28] MEDS ORDERED: PROCHLORPERAZINE 10 MG/2 ML VIAL. IV PRN (07:00)
[2018-12-28] MEDS ORDERED: MORPHINE SULFATE 2 MG/ML VIAL. IV PRN (07:00)
[2018-12-28] MEDS ORDERED: fentaNYL PF VIAL 100 MCG/2 ML VIAL IV PRN ×2 (07:00)
[2018-12-28] MEDS ORDERED: HYDROmorphone 2 MG/ML VIAL IV PRN (07:00)
[2018-12-28] MEDS ORDERED: LIDOCAINE 1% PF 2 ML VIAL. ID PRN (07:00)
[2018-12-28] MEDS ORDERED: PROPOFOL 20 ML IV ONE (08:33)
[2018-12-28] MEDS ORDERED: LIDOCAINE 2% PF 5 ML VIAL. ONE (08:33)
[2018-12-28] MEDS ORDERED: MIDAZOLAM HCL/PF 2 MG/2 ML VIAL. ONE (08:33)
--- NOTE | 2018-12-28 08:36 | PDOC ---
ORTHO PROGRESS NOTES Subjective c/o pain entire R leg, worse in calf when walking, lateral right hip when lying down. Nervous at thought of procedure this am. Vitals Vital Signs Date Time Temp Pulse Resp B/P (MAP) Pulse Ox O2 Delivery O2 Flow Rate FiO2 12/28/18 08:26 99.2 88 16 128/81 100 Room Air 99.2 Labs Laboratory Tests Test 12/26/18 15:00 12/27/18 05:27 White Blood Count 6.7 x10^3/uL (4.0-11.0) 5.6 x10^3/uL (4.0-11.0) Red Blood Count 4.89 x10^6/uL (4.30-5.70) 4.98 x10^6/uL (4.30-5.70) Hemoglobin 12.9 g/dL (13.0-17.5) 13.2 g/dL (13.0-17.5) Hematocrit 39.9 % (39.0-53.0) 40.7 % (39.0-53.0) Mean Corpuscular Volume 82 fL (79-100) 82 fL (79-100) Mean Corpuscular Hemoglobin 26 pg (25-35) 27 pg (25-35) Mean Corpuscular Hemoglobin Concent 32 g/dL (31-37) 33 g/dL (31-37) Red Cell Distribution Width 16.6 % (11.5-14.5) 16.4 % (11.5-14.5) Platelet Count 308 x10^3/uL (140-400) 321 x10^3/uL (140-400) Neutrophils (%) (Auto) 70 % (31-73) 64 % (31-73) Lymphocytes (%) (Auto) 12 % (24-48) 14 % (24-48) Monocytes (%) (Auto) 12 % (0-9) 17 % (0-9) Eosinophils (%) (Auto) 5 % (0-3) 6 % (0-3) Basophils (%) (Auto) 2 % (0-3) 0 % (0-3) Neutrophils # (Auto) 4.7 x10^3uL (1.8-7.7) 3.6 x10^3uL (1.8-7.7) Lymphocytes # (Auto) 0.8 x10^3/uL (1.0-4.8) 0.8 x10^3/uL (1.0-4.8) Monocytes # (Auto) 0.8 x10^3/uL (0.0-1.1) 0.9 x10^3/uL (0.0-1.1) Eosinophils # (Auto) 0.4 x10^3/uL (0.0-0.7) 0.3 x10^3/uL (0.0-0.7) Basophils # (Auto) 0.1 x10^3/uL (0.0-0.2) 0.0 x10^3/uL (0.0-0.2) Sodium Level 139 mmol/L (136-145) 140 mmol/L (136-145) Potassium Level 3.9 mmol/L (3.5-5.1) 4.2 mmol/L (3.5-5.1) Chloride Level 102 mmol/L (98-107) 103 mmol/L (98-107) Carbon Dioxide Level 27 mmol/L (21-32) 29 mmol/L (21-32) Anion Gap 10 (6-14) 8 (6-14) Blood Urea Nitrogen 15 mg/dL (8-26) 14 mg/dL (8-26) Creatinine 1.2 mg/dL (0.7-1.3) 0.9 mg/dL (0.7-1.3) Estimated GFR (Cockcroft-Gault) 90.0 125.4 BUN/Creatinine Ratio 13 (6-20) Glucose Level 96 mg/dL (70-99) 89 mg/dL (70-99) Calcium Level 8.4 mg/dL (8.5-10.1) 8.4 mg/dL (8.5-10.1) Total Bilirubin 0.4 mg/dL (0.2-1.0) Aspartate Amino Transf (AST/SGOT) 28 U/L (15-37) Alanine Aminotransferase (ALT/SGPT) 34 U/L (16-63) Alkaline Phosphatase 62 U/L (46-116) Lactate Dehydrogenase 316 U/L (85-227) Total Protein 7.2 g/dL (6.4-8.2) Albumin 3.2 g/dL (3.4-5.0) Albumin/Globulin Ratio 0.8 (1.0-1.7) Thyroid Stimulating Hormone (TSH) 0.377 uIU/mL (0.358-3.74) Notes A and A walking in room BOBBI to RLE, edema throughout Mild tenderness and abductor muscle belly and anterior to this. Assessment and Plan Lymph node biopsy today. No plans for any orthopedic interventions. TAE ORTEGA II, MD Dec 28, 2018 08:36
[2018-12-28] MEDS ORDERED: SEVOFLURANE 16 TO 30 MINUTES. IH ONE (08:37)
--- NOTE | 2018-12-28 08:52 | PDOC ---
SUBJECTIVE Subjective Reason for consultation: Suspected lymphoma versus other, formal hem/onc consult today, as he was not available for evaluation when last note written Consult: Hematology oncology, Dr. Shell Acosta History of present illness: He is a 23-year-old man with swelling, chronic, that initially began at the right inguinal region extending to R thigh and beyond, and has progressed and worsened over time, associated with pain swelling and just very recently some numbness of his foot all beginning in July 2018, he has been evaluated by orthopedics and plain films have been negative, but due to progressive symptoms he was admitted, w/ pelvic mass and is at risk for possible pathologic right femur fracture. He is getting a surgical biopsy today. Pain pills have not helped. He is otherwise young and healthy. Past medical history: Ulcers Right thigh mass Past surgical history: Pending surgical biopsy today Allergies: No known drug allergies Medications: See attached list Social history: Single, lives with family his mom and siblings, 6 1/2 siblings, works manual labor nearby Family history: Mother with uterine cancer Review of systems: Leg pain, swelling, numbness, weight gain of 18 pounds likely related to swelling, otherwise 10 point review of systems negative Physical exam: Vitals reviewed Gen.: Well-nourished and well-developed in no acute distress HEENT: mucous membranes dry, head normocephalic atraumatic Neck: Supple, no lymphadenopathy Lymph nodes: No palpable lymphadenopathy neck or axilla Lungs: Breathing comfortably on room air, no evidence of respiratory distress Heart: Regular rate and rhythm Abdomen: Soft, nontender, nondistended Extremities: No cyanosis, though he has significant right lower extremity swelling and fullness at his right inguinal region and a mass surrounding his femur that is palpable and large Skin: No obvious rashes or skin breakdown Neuro: Alert and oriented 3 Psych: Pleasant mood and affect Lab reviewed: CBC normal, CMP normal other than low calcium, TSH normal, LDH slightly elevated at 316 Rads reviewed: Lower extremity ultrasound no DVT but right groin lymph node to 4.[address] chest abdomen and pelvis multiple pelvic and inguinal node masses, abnormal right femoral trochanter MRI pelvis significant lymphadenopathy, right femoral possible pathologic fracture due to surrounding mass 9.3 x 12 cm with marrow involvement 17.5 cm Case discussed with: Pt, nursing staff, records reviewed in [facility], including labs and radiology, please see note for summary details. Assessment and Plan: Junior is a 23-year-old man with right femur mass and inguinal lymphadenopathy, symptoms worsening since July with significant right leg swelling and just recently some numbness at his foot, as well as pain. Inguinal lymphadenopathy and large mass surrounding femur, getting biopsy today , recommend flow cytometry as well Abnormal marrow signal for 17.5 cm on MRI: Concern for lymphoma as well, LDH slightly elevated but not markedly, will order bone marrow biopsy for Monday, please have patient nothing by mouth post midnight on Monday night and hold Lovenox 24 hours before biopsy on Monday please, as soon as pathology is obtained we can make further recommendations Right lower extremity swelling: OT for lymphedema has been consulted as well as compression and DVT prophylaxis History of tobacco and marijuana: Recommend cessation upon discharge Possible impending fracture: Would recommend discussing films w/ orthopedics to make sure stabilization is not needed, and will consult radiation oncology who will likely be involved in his care Thank you kindly for this consultation, and please don't hesitate to call with any further questions. OBJECTIVE Vital Signs Vital Signs Date Time Temp Pulse Resp B/P (MAP) Pulse Ox O2 Delivery O2 Flow Rate FiO2 12/28/18 08:26 99.2 88 16 128/81 100 Room Air 99.2 12/28/18 07:02 Room Air 12/28/18 05:55 Room Air 12/28/18 03:00 99.2 88 18 128/81 (97) 100 Room Air 99.2 12/27/18 22:58 99.0 90 18 119/71 (87) 100 Room Air 99.0 12/27/18 22:21 Room Air 12/27/18 19:54 Room Air 12/27/18 19:00 97.7 77 18 122/87 (99) 98 Room Air 97.7 12/27/18 15:00 98.3 80 18 129/73 (91) 98 Room Air 98.3 12/27/18 14:34 97 12/27/18 13:34 97 Room Air 12/27/18 11:00 98.4 64 17 131/81 (98) 97 Room Air 98.4 12/27/18 08:52 98 Room Air I & O Intake and Output 12/28/18 07:00 Intake Total 1600 ml Balance 1600 ml Intake Oral 600 ml IV Total 1000 ml # Voids 4 SHELL ACOSTA MD Dec 28, 2018 08:52
--- NOTE | 2018-12-28 09:05 | PDOC ---
PROGRESS NOTES Subjective Subjective Patient feeling ok awaiting surgery for lymph node BX. Objective Objective Vital Signs Date Time Temp Pulse Resp B/P (MAP) Pulse Ox O2 Delivery O2 Flow Rate FiO2 12/28/18 08:26 99.2 88 16 128/81 100 Room Air 99.2 Intake and Output 12/28/18 07:00 Intake Total 1600 ml Balance 1600 ml Intake Oral 600 ml IV Total 1000 ml # Voids 4 Physical Exam Abdomen: Normal bowel sounds Heart: Regular rate Extremities: Other (massive edema to right leg) General: Alert Lungs: Clear to auscultation Assessment Assessment 1. Intractable right lower extremity pain. 2. Mobility deficit. 3. Lymphedema. 4. Lymphadenopathy 5. Suspected lymphoma vs sarcoma right inguinal area Plan Plan of Care Await Bx Ortho eval for risk of pathologic frx Consult Rad Onc Bone Marrow Bx Monday Comment Review of Relevant I have reviewed the following items colleen (where applicable) has been applied. Labs Laboratory Tests Test 12/26/18 15:00 12/27/18 05:27 White Blood Count 6.7 x10^3/uL (4.0-11.0) 5.6 x10^3/uL (4.0-11.0) Red Blood Count 4.89 x10^6/uL (4.30-5.70) 4.98 x10^6/uL (4.30-5.70) Hemoglobin 12.9 g/dL (13.0-17.5) 13.2 g/dL (13.0-17.5) Hematocrit 39.9 % (39.0-53.0) 40.7 % (39.0-53.0) Mean Corpuscular Volume 82 fL (79-100) 82 fL (79-100) Mean Corpuscular Hemoglobin 26 pg (25-35) 27 pg (25-35) Mean Corpuscular Hemoglobin Concent 32 g/dL (31-37) 33 g/dL (31-37) Red Cell Distribution Width 16.6 % (11.5-14.5) 16.4 % (11.5-14.5) Platelet Count 308 x10^3/uL (140-400) 321 x10^3/uL (140-400) Neutrophils (%) (Auto) 70 % (31-73) 64 % (31-73) Lymphocytes (%) (Auto) 12 % (24-48) 14 % (24-48) Monocytes (%) (Auto) 12 % (0-9) 17 % (0-9) Eosinophils (%) (Auto) 5 % (0-3) 6 % (0-3) Basophils (%) (Auto) 2 % (0-3) 0 % (0-3) Neutrophils # (Auto) 4.7 x10^3uL (1.8-7.7) 3.6 x10^3uL (1.8-7.7) Lymphocytes # (Auto) 0.8 x10^3/uL (1.0-4.8) 0.8 x10^3/uL (1.0-4.8) Monocytes # (Auto) 0.8 x10^3/uL (0.0-1.1) 0.9 x10^3/uL (0.0-1.1) Eosinophils # (Auto) 0.4 x10^3/uL (0.0-0.7) 0.3 x10^3/uL (0.0-0.7) Basophils # (Auto) 0.1 x10^3/uL (0.0-0.2) 0.0 x10^3/uL (0.0-0.2) Sodium Level 139 mmol/L (136-145) 140 mmol/L (136-145) Potassium Level 3.9 mmol/L (3.5-5.1) 4.2 mmol/L (3.5-5.1) Chloride Level 102 mmol/L (98-107) 103 mmol/L (98-107) Carbon Dioxide Level 27 mmol/L (21-32) 29 mmol/L (21-32) Anion Gap 10 (6-14) 8 (6-14) Blood Urea Nitrogen 15 mg/dL (8-26) 14 mg/dL (8-26) Creatinine 1.2 mg/dL (0.7-1.3) 0.9 mg/dL (0.7-1.3) Estimated GFR (Cockcroft-Gault) 90.0 125.4 BUN/Creatinine Ratio 13 (6-20) Glucose Level 96 mg/dL (70-99) 89 mg/dL (70-99) Calcium Level 8.4 mg/dL (8.5-10.1) 8.4 mg/dL (8.5-10.1) Total Bilirubin 0.4 mg/dL (0.2-1.0) Aspartate Amino Transf (AST/SGOT) 28 U/L (15-37) Alanine Aminotransferase (ALT/SGPT) 34 U/L (16-63) Alkaline Phosphatase 62 U/L (46-116) Lactate Dehydrogenase 316 U/L (85-227) Total Protein 7.2 g/dL (6.4-8.2) Albumin 3.2 g/dL (3.4-5.0) Albumin/Globulin Ratio 0.8 (1.0-1.7) Thyroid Stimulating Hormone (TSH) 0.377 uIU/mL (0.358-3.74) Medications Current Medications Acetaminophen/ Hydrocodone Bitart (Lortab 5/325) 1 tab PRN Q4HRS PRN PO MILD PAIN Last administered on 12/26/18 14:20; Start 12/26/18 at 13:15 Acetaminophen/ Hydrocodone Bitart (Lortab 5/325) 2 tab PRN Q4HRS PRN PO MODERATE PAIN, SEVERE PAIN Last administered on 12/28/18at 05:55; Start 12/26/18 at 13:15 Enoxaparin Sodium (Lovenox 40mg Syringe) 40 mg Q24H SQ Last administered on 12/26at 14:26; Start 12/26/18 at 14:00 Iohexol (Omnipaque 300 Mg/ml) 75 ml 1X ONCE IV Last administered on 12/26/18 16:00; Start 12/26/18 at 15:00; Stop 12/26/18 at 15:01; Status DC Iohexol (Omnipaque 240 Mg/ml) 30 ml 1X ONCE PO Last administered on 12/26/18at 15:00; Start 12/26/18 at 15:00; Stop 12/26/18 at 15:01; Status DC Info (CONTRAST GIVEN -- Rx MONITORING) 1 each PRN DAILY PRN MC SEE COMMENTS; Start 12/26/18 at 15:00; Stop 12/28/18 at 14:59 Sodium Chloride 1,000 ml @ 100 mls/hr Q10H IV Last administered on 12/27/18at 22 :21; Start 12/26/18 at 16:00 Gadobutrol (Gadavist) 9 mmol 1X ONCE IV Last administered on 12/26/18at 16:30; Start 12/26/18 at 16:30; Stop 12/26/18 at 16:31; Status DC Ondansetron HCl (Zofran) 4 mg PRN Q6HRS PRN IV NAUSEA/VOMITING; Start 12/28/18 at 07:00; Stop 12/29/18 at 06:59 Fentanyl Citrate (Fentanyl 2ml Vial) 25 mcg PRN Q5MIN PRN IV MILD PAIN; Start 12/28/18 at 07:00; Stop 12/29/18 at 06:59 Fentanyl Citrate (Fentanyl 2ml Vial) 50 mcg PRN Q5MIN PRN IV MODERATE TO SEVERE PAIN; Start 12/28/18 at 07:00; Stop 12/29/18 at 06:59 Morphine Sulfate (Morphine Sulfate) 1 mg PRN Q10MIN PRN IV SEVERE PAIN; Start 12/28/18 at 07:00; Stop 12/29/18 at 06:59 Ringer's Solution 1,000 ml @ 30 mls/hr Q24H IV Last administered on 12/28/18at 08:29; Start 12/28/18 at 07:00; Stop 12/28/18 at 18:59 Lidocaine HCl (Xylocaine-Mpf 1% 2ml Vial) 2 ml PRN 1X PRN ID IV START; Start at 07:00; Stop 12/29/18 at 06:59 Hydromorphone HCl (Dilaudid) 0.5 mg PRN Q10MIN PRN IV SEV PAIN, Second choice; Start 12/28/18 at 07:00; Stop 12/29/18 at 06:59 Prochlorperazine Edisylate (Compazine) 5 mg PACU PRN PRN IV NAUSEA, MRX1; Start 12/28/18 at 07:00; Stop 12/29/18 at 06:59 Nicotine (Nicoderm Cq 14mg) 1 patch PRN DAILY PRN TD SMOKING CESSATION Last administered on 12/27/18at 19:32; Start 12/27/18 at 19:15 Alprazolam (Xanax) 0.5 mg PRN Q8HRS PRN PO ANXIETY / AGITATION Last administered on 12/27/18at 19:32; Start 12/27/18 at 19:15 Cefazolin Sodium/ Dextrose 50 ml @ 100 mls/hr 1X PREOP IV ; Start 12/28/18 at 05:00; Stop 12/28/18 at 05:29; Status DC Midazolam HCl (Versed) 2 mg STK-MED ONCE .ROUTE ; Start 12/28/18 at 08:33; Stop 12/28/18 at 08:34; Status DC Propofol 20 ml @ As Directed STK-MED ONCE IV ; Start 12/28/18 at 08:33; Stop 12/28 at 08:34; Status DC Lidocaine HCl (Lidocaine Pf 2% Vial) 5 ml STK-MED ONCE .ROUTE ; Start 12/28/18 at 08:33; Stop 12/28/18 at 08:34; Status DC Sevoflurane (Ultane) 15 ml STK-MED ONCE IH ; Start 12/28/18 at 08:37; Stop at 08:38; Status DC Active Scripts Active [place] 5-325 Tablet (Acetaminophen/Hydrocodone Bitart) 1 Each Tablet 1 Tab PO Q6HRS Diclofenac Sodium 50 Mg Tablet.dr 1 Tab PO BID Cyclobenzaprine Hcl 10 Mg Tablet 1 Tab PO TID PRN Vitals/I & O Vital Sign - Last 24 Hours 12/27/18 12/27/18 12/27/18 12/27/18 11:00 13:34 14:34 15:00 Temp 98.4 98.3 98.4 98.3 Pulse 64 80 Resp 17 18 B/P (MAP) 131/81 (98) 129/73 (91) Pulse Ox 97 97 97 98 O2 Delivery Room Air Room Air Room Air 12/27/18 12/27/18 12/27/18 12/27/18 19:00 19:54 22:21 22:58 Temp 97.7 99.0 97.7 99.0 Pulse 77 90 Resp 18 18 B/P (MAP) 122/87 (99) 119/71 (87) Pulse Ox 98 100 O2 Delivery Room Air Room Air Room Air Room Air 12/28/18 12/28/18 12/28/18 12/28/18 03:00 05:55 07:02 08:26 Temp 99.2 99.2 99.2 99.2 Pulse 88 88 Resp 18 16 B/P (MAP) 128/81 (97) 128/81 Pulse Ox 100 100 O2 Delivery Room Air Room Air Room Air Room Air Intake and Output 12/27/18 12/27/18 12/28/18 15:00 23:00 07:00 Intake Total 1000 ml 600 ml Balance 1000 ml 600 ml ZAN PAK MD Dec 28, 2018 09:05
[2018-12-28] MEDS ORDERED: BUPIVACAINE-EPI 0.25%-1:200000 MPF 30 ML VIAL. ONE (09:14)
[2018-12-28] MEDS ORDERED: PHENYLEPHRINE 10 MG/ML VIAL. ONE (09:50)
[2018-12-28] MEDS ORDERED: fentaNYL PF VIAL 100 MCG/2 ML VIAL ONE (09:50)
[2018-12-28] MEDS ORDERED: DEXAMETHASONE SOD PHOS 20 MG/5 ML VIAL. ONE (09:50)
[2018-12-28] MEDS ORDERED: ONDANSETRON PF 4 MG/2 ML VIAL. ONE (09:52)
--- NOTE | 2018-12-28 10:08 | PDOC4 ---
Operative Note Operative Note Date: 12/28/2018 Preoperative diagnosis: Lymphedema right lower extremity with lymphadenopathy Postoperative diagnosis: Same Procedure: Right groin excisional lymph node biopsy Surgeon: Ras Specimen: Right groin lymph node Dictation: Patient is 23-year-old male was admitted to the hospital with swelling of the right lower extremity a CT scan of his abdomen and pelvis showed significant lymphadenopathy throughout with some large nodes both in the right and left groins. Procedure of excisional biopsy of lymph node right groin was explained to the patient detail risk benefits were also discussed including bleeding infection alternatives to this procedure also discussed with patient is seemed to understand and gave both verbal and written consent to have the procedure performed. Patient was taken to the operating room placed in supine position general anesthesia was initiated once patient was sleep and intubated his right groin and abdomen were prepped and draped in usual sterile fashion using ChloraPrep. An area in the right groin was injected with quarter percent Marcaine with epinephrine incision is made 15 blade scalpel was carried down through the subcutaneous tissue using electrocautery divided hemostasis until a large lymph node was encountered this was sharply excised with electrocautery and sent for pathology and as fresh specimen. Arrester was used in the wound and the wound was closed in 2 layers deep layer running 3-0 Vicryl and the skin was approximate for septic and a Monocryl Mastel Steri-Strips and island dressing were applied. Patient was awakened and asked made in the operating room taken recovery in stable condition all sponge instrument needle counts listed as correct as no blood loss 5 mL IONA WANG MD Dec 28, 2018 10:08
--- NOTE | 2018-12-28 10:23 | NUR ---
SW following. Discussed with RN, pt having biopsy this morning. SW will continue to follow for discharge planning needs.
[2018-12-28] MEDS: IV NORMAL SALINE 1000ML BAG 1,000 ML IV SCH ×2 (12:02→18:00)
[2018-12-28] MEDS: ENOXAPARIN 40 MG/0.4 ML SYRINGE. SQ SCH (14:00)
--- NOTE | 2018-12-28 14:41 | PDOC ---
Provider Note Provider Note 23 yo man with progressive right hip buttock groin and leg pain and leg swelling since July 2018. He just underwent open bx of right groin region. No fatigue,N V F C or wt loss. CT C/A/P huge right iliac deepthi masses extending into inguinal region. Sclerotic subtly lytic bone changes in right femoral neck. MRI Pelvis confirms CT findings with extensive bone marrow infiltration in femoral head, neck and prox shaft. CBC and Chem panel ok Impression : Probable regionally extensive NHL. ( less likely sarcoma) await inguinal LN bx just done. BMBx scheduled for Monday. Need ortho follow-up assessment of path fx risk of femur and interventional recommendation if indicated. Discussed with patient. JASMYNE STEVENS MD Dec 28, 2018 14:41
[2018-12-28 14:52] VITALS: BP 132/80
[2018-12-28 19:00] VITALS: BP 104/69
[2018-12-28 22:38] VITALS: BP 119/81
[2018-12-29] MEDS: IV NORMAL SALINE 1000ML BAG 1,000 ML IV SCH ×2 (01:41→12:18)
[2018-12-29 02:48] VITALS: BP 111/59
--- NOTE | 2018-12-29 04:02 | CONS ---
DATE OF CONSULTATION: REFERRING PHYSICIAN: Belem Acosta M.D. DIAGNOSIS: Possible regionally extensive lymphoma involving the pelvic lymph nodes and proximal. DICTATION ENDS HERE ABRUPTLY. JASMYNE STEVENS MD DR: ANATOLY/cassandra JOB#: [id number] / [id number] TAE Arshad MD, MICHAEL MD
[2018-12-29 06:55] VITALS: BP 111/61
--- NOTE | 2018-12-29 09:35 | PDOC ---
ORTHO PROGRESS NOTES Vitals Vital Signs Date Time Temp Pulse Resp B/P (MAP) Pulse Ox O2 Delivery O2 Flow Rate FiO2 12/29/18 06:55 97.9 86 17 111/61 (78) 97 Room Air 97.9 Assessment and Plan Imaging again was reviewed. I do not appreciate any cortical disruption in this patient. I do not think he needs any type of orthopedic intervention at this time. If there is persistent concern for sarcoma, I recommend transfer to an orthopedic oncologist, as his person would need to be involved in the biopsy and any potential surgery. TAE ORTEGA II, MD Dec 29, 2018 09:35
[2018-12-29 10:36] VITALS: BP 112/68
--- NOTE | 2018-12-29 10:41 | CONS ---
DATE OF CONSULTATION: 12/28/2018 REFERRING PHYSICIAN: Belem Acosta MD. DIAGNOSIS: Possible extensive lymphoma versus sarcoma involving the regional right lymph nodes in the inguinal and iliac regions and contiguous gluteus with local extension into proximal femur. He has just undergone open biopsy of his right inguinal lymph node region. We were asked to see regarding the role of radiation treatment in his care. ICD 10 C79.51 C77.5 HISTORY OF PRESENT ILLNESS: The patient is a 23-year-old gentleman who initially was developing right buttock and right medial thigh pain in 07/2018, which progressively got worse. Initial evaluations were unremarkable. He then experienced swelling extending from the groin initially to the knee in 08/2018 over the last month. This swelling extended to involve the calf all the way down to the right foot. Pain has been up to 8 on a 10 scale of pain and disrupts sleep. He also has pain on standing and stepping. During this time, he had no fevers, chills, nausea or vomiting. He had noted weight gain with increasing swelling. He has had good appetite and stable energy level. He worked in [employer] both for [employer]. PAST MEDICAL HISTORY: Remarkable for peptic ulcer disease in childhood. No significant illnesses outside of this, no significant surgeries. MEDICATIONS: On admission included hydrocodone/acetaminophen 5/325, diclofenac, cyclobenzaprine. ALLERGIES: No known allergies. FAMILY HISTORY: Mother had some form of bladder malignancy in the past. SOCIAL HISTORY: Single, lives at home, high school graduate, 4 cigarettes a day, occasional marijuana, occasional alcohol, enjoys playing basketball. PHYSICAL EXAMINATION: GENERAL: Revealed a pleasant, alert, cooperative gentleman in no acute distress. HEENT: Unremarkable. LYMPH NODES: He had no palpable cervical or supraclavicular adenopathy. HEART: Regular. LUNGS: Clear. ABDOMEN: Unremarkable. EXTREMITIES: Right groin was diffusely full and indurated. Overlying incision was covered by a bandage from his biopsy earlier today. Right leg was diffusely swollen from the groin, calf, extending into the foot. Ambulation occurred without difficulty. CT scan of the chest, abdomen and pelvis with contrast on 12/26/2018 revealed multiple enlarged pelvic and right inguinal lymph node masses, diffuse edema of the upper thigh, sclerotic and subtly lytic changes in the trochanteric femoral neck region. MRI of the pelvis confirmed the findings on CT scan. There were enhancing soft tissue masses extending from the right inguinal region encasing the vascular bundle extending into the iliac region and contiguously into the medial gluteus muscle. There was extensive abnormal marrow infiltration in the femoral head, femoral neck and proximal femoral shaft. There was diffuse intramuscular, intermuscular edema. LABORATORY STUDIES: Baseline laboratory studies were unremarkable. Hemoglobin 12.9, white count 6700, platelet count 303,000. Chemistry panel was within normal limits. Creatinine 1.2, calcium 8.4, normal liver function tests. IMPRESSION AND PLAN: In summary, my impression is that of regionally extensive malignancy, radiographically most consistent with likely non-Hodgkin's lymphoma , however a bizarre atypical sarcoma cannot be fully excluded radiographically. Inguinal lymph node biopsy has just been done and may be available by 12/31/2018. He is scheduled for a bone marrow biopsy, which is appropriate also scheduled for 12/31/2018. In the event, he has a lymphoma. Baseline PET CT imaging would be valuable to confirm extent of disease. Orthopedic evaluation to assess his femoral neck for pathologic fracture would be of value as well. In the event, he does have a non-Hodgkin's lymphoma confined to a region, he may be best treated with systemic chemotherapy and consider involved site radiation therapy for consolidation. I had a general discussion with the patient. We will return to see him following outcome of his inguinal lymph node biopsy. Thank you for allowing us to participate in his evaluation. JASMYNE STEVENS MD DR: ANATOLY/cassandra JOB#: [id number] / [id number] TAE Arshad MD, MICHAEL MD MTDD
[2018-12-29] MEDS: HYDROcodone/APAP 5/325MG 1 TAB TABLET PO PRN ×2 (11:17→19:36)
--- NOTE | 2018-12-29 11:38 | PDOC ---
Provider Note Provider Note Jerome for Dr Mcginnis POD [address] biopsy up to side of bed no new c/o continue post op care LUCIE VELÁSQUEZ MD Dec 29, 2018 11:38
--- NOTE | 2018-12-29 13:08 | PDOC ---
PROGRESS NOTES Subjective Subjective Patient without complaint. Pain OK with prn [place]. Objective Objective Vital Signs Date Time Temp Pulse Resp B/P (MAP) Pulse Ox O2 Delivery O2 Flow Rate FiO2 12/29/18 12:19 16 Room Air 12/29/18 10:36 97.6 80 112/68 (83) 100 97.6 Intake and Output 12/29/18 06:59 Intake Total 2150 ml Output Total 10 ml Balance 2140 ml Intake Oral 1600 ml IV Total 550 ml Output Estimated Blood Loss 10 ml Physical Exam Abdomen: Normal bowel sounds, Soft, No tenderness Heart: Regular rate Extremities: Other (severe edema R LE) General: Alert, Oriented X3, No acute distress Lungs: Clear to auscultation Plan Plan of Care 1. Lymphadenopathy, POD #1 excisional lymph node biopsy R groin - stable, pain controlled with po medication. Taking po well, IVF d/c. Await pathology report. Bone marrow biopsy scheduled for Monday. Can consider sending patient home tomorrow and return as outpatient for biopsy. Comment Review of Relevant I have reviewed the following items oclleen (where applicable) has been applied. Medications Current Medications Acetaminophen/ Hydrocodone Bitart (Lortab 5/325) 1 tab PRN Q4HRS PRN PO MILD PAIN Last administered on 12/26/18at 14:20; Start 12/26/18 at 13:15 Acetaminophen/ Hydrocodone Bitart (Lortab 5/325) 2 tab PRN Q4HRS PRN PO MODERATE PAIN, SEVERE PAIN Last administered on 12/29/18at 11:17; Start 12/26/18 at 13:15 Enoxaparin Sodium (Lovenox 40mg Syringe) 40 mg Q24H SQ Last administered on 12/26at 14:26; Start 12/26/18 at 14:00 Iohexol (Omnipaque 300 Mg/ml) 75 ml 1X ONCE IV Last administered on 12/26/18at 16:00; Start 12/26/18 at 15:00; Stop 12/26/18 at 15:01; Status DC Iohexol (Omnipaque 240 Mg/ml) 30 ml 1X ONCE PO Last administered on 12/26/18at 15:00; Start 12/26/18 at 15:00; Stop 12/26/18 at 15:01; Status DC Info (CONTRAST GIVEN -- Rx MONITORING) 1 each PRN DAILY PRN MC SEE COMMENTS; Start 12/26/18 at 15:00; Stop 12/28/18 at 14:59; Status DC Sodium Chloride 1,000 ml @ 100 mls/hr Q10H IV Last administered on 12/29/18at 12 :18; Start 12/26/18 at 16:00 Gadobutrol (Gadavist) 9 mmol 1X ONCE IV Last administered on 12/26/18at 16:30; Start 12/26/18 at 16:30; Stop 12/26/18 at 16:31; Status DC Ondansetron HCl (Zofran) 4 mg PRN Q6HRS PRN IV NAUSEA/VOMITING; Start 12/28/18 at 07:00; Stop 12/28/18 at 15:44; Status DC Fentanyl Citrate (Fentanyl 2ml Vial) 25 mcg PRN Q5MIN PRN IV MILD PAIN; Start 12/28/18 at 07:00; Stop 12/28/18 at 15:42; Status DC Fentanyl Citrate (Fentanyl 2ml Vial) 50 mcg PRN Q5MIN PRN IV MODERATE TO SEVERE PAIN; Start 12/28/18 at 07:00; Stop 12/28/18 at 15:43; Status DC Morphine Sulfate (Morphine Sulfate) 1 mg PRN Q10MIN PRN IV SEVERE PAIN; Start 12/28/18 at 07:00; Stop 12/28/18 at 15:43; Status DC Ringer's Solution 1,000 ml @ 30 mls/hr Q24H IV Last administered on 12/28/18at 08:29; Start 12/28/18 at 07:00; Stop 12/28/18 at 18:59; Status DC Lidocaine HCl (Xylocaine-Mpf 1% 2ml Vial) 2 ml PRN 1X PRN ID IV START; Start at 07:00; Stop 12/28/18 at 15:43; Status DC Hydromorphone HCl (Dilaudid) 0.5 mg PRN Q10MIN PRN IV SEV PAIN, Second choice; Start 12/28/18 at 07:00; Stop 12/28/18 at 15:43; Status DC Prochlorperazine Edisylate (Compazine) 5 mg PACU PRN PRN IV NAUSEA, MRX1; Start 12/28/18 at 07:00; Stop 12/28/18 at 15:44; Status DC Nicotine (Nicoderm Cq 14mg) 1 patch PRN DAILY PRN TD SMOKING CESSATION Last administered on 12/27/18at 19:32; Start 12/27/18 at 19:15 Alprazolam (Xanax) 0.5 mg PRN Q8HRS PRN PO ANXIETY / AGITATION Last administered on 12/27/18at 19:32; Start 12/27/18 at 19:15 Cefazolin Sodium/ Dextrose 50 ml @ 100 mls/hr 1X PREOP IV Last administered on 12/28/18at 09:25; Start 12/28/18 at 05:00; Stop 12/28/18 at 05:29; Status DC Midazolam HCl (Versed) 2 mg STK-MED ONCE .ROUTE ; Start 12/28/18 at 08:33; Stop 12/28/18 at 08:34; Status DC Propofol 20 ml @ As Directed STK-MED ONCE IV ; Start 12/28/18 at 08:33; Stop 12/28 at 08:34; Status DC Lidocaine HCl (Lidocaine Pf 2% Vial) 5 ml STK-MED ONCE .ROUTE ; Start 12/28/18 at 08:33; Stop 12/28/18 at 08:34; Status DC Sevoflurane (Ultane) 15 ml STK-MED ONCE IH ; Start 12/28/18 at 08:37; Stop at 08:38; Status DC Bupivacaine HCl/ Epinephrine Bitart (Sensorcaine-Epi 0.25%-1:697225 Mpf) 30 ml STK-MED ONCE .ROUTE Last administered on 12/28/18at 09:49; Start 12/28/18 at 09:14 ; Stop 12/28/18 at 09:15; Status DC Fentanyl Citrate (Fentanyl 2ml Vial) 100 mcg STK-MED ONCE .ROUTE ; Start at 09:50; Stop 12/28/18 at 09:51; Status DC Dexamethasone Sodium Phosphate (Decadron) 20 mg STK-MED ONCE .ROUTE ; Start 12/28 at 09:50; Stop 12/28/18 at 09:51; Status DC Phenylephrine HCl (Maxwell-Synephrine Inj) 10 mg STK-MED ONCE .ROUTE ; Start at 09:50; Stop 12/28/18 at 09:51; Status DC Ondansetron HCl (Zofran) 4 mg STK-MED ONCE .ROUTE ; Start 12/28/18 at 09:52; Stop 12/28/18 at 09:53; Status DC Active Scripts Active [place] 5-325 Tablet (Acetaminophen/Hydrocodone Bitart) 1 Each Tablet 1 Tab PO Q6HRS Diclofenac Sodium 50 Mg Tablet.dr 1 Tab PO BID Cyclobenzaprine Hcl 10 Mg Tablet 1 Tab PO TID PRN Vitals/I & O Vital Sign - Last 24 Hours 12/28/18 12/28/18 12/28/18 12/28/18 14:52 19:00 20:30 21:53 Temp 98.4 98.6 98.4 98.6 Pulse 89 79 Resp 18 16 20 B/P (MAP) 132/80 (97) 104/69 (81) Pulse Ox 100 98 O2 Delivery Room Air Room Air Room Air Room Air 12/28/18 12/29/18 12/29/18 12/29/18 22:38 02:48 06:55 08:00 Temp 97.5 98.1 97.9 97.5 98.1 97.9 Pulse 86 69 86 Resp 18 18 17 B/P (MAP) 119/81 (94) 111/59 (76) 111/61 (78) Pulse Ox 98 98 97 O2 Delivery Room Air Room Air Room Air Room Air 12/29/18 12/29/18 12/29/18 10:36 11:17 12:19 Temp 97.6 97.6 Pulse 80 Resp 16 18 16 B/P (MAP) 112/68 (83) Pulse Ox 100 O2 Delivery Room Air Room Air Room Air Intake and Output 12/28/18 12/28/18 12/29/18 14:59 22:59 06:59 Intake Total 550 ml 300 ml 1300 ml Output Total 10 ml Balance 540 ml 300 ml 1300 ml RAMYA MCNEAL MD Dec 29, 2018 13:08
[2018-12-29 15:17] VITALS: BP 121/61
[2018-12-29] MEDS: ENOXAPARIN 40 MG/0.4 ML SYRINGE. SQ SCH (15:36)
[2018-12-29 19:00] VITALS: BP 118/48
[2018-12-29] MEDS: NICOTINE 14MG PATCH. TD PRN (19:46)
[2018-12-29 22:54] VITALS: BP 134/73
[2018-12-30 03:00] VITALS: BP 115/67
[2018-12-30 07:00] VITALS: BP 124/76
--- NOTE | 2018-12-30 09:43 | PDOC ---
Provider Note Provider Note SURG POD [address] biopsy a little sore right inguinal dressing dry, intact path PND LUCIE VELÁSQUEZ MD Dec 30, 2018 09:43
[2018-12-30] MEDS: HYDROcodone/APAP 5/325MG 1 TAB TABLET PO PRN (09:44)
[2018-12-30 10:40] VITALS: BP 126/72
--- NOTE | 2018-12-30 11:59 | PDOC ---
PROGRESS NOTES Subjective Subjective Patient without complaint. Pain controlled with prn [place]. Objective Objective Vital Signs Date Time Temp Pulse Resp B/P (MAP) Pulse Ox O2 Delivery O2 Flow Rate FiO2 12/30/18 10:40 98.0 74 18 126/72 (90) 100 Room Air 98.0 Intake and Output 12/30/18 07:00 # Voids 3 Physical Exam Abdomen: Normal bowel sounds, Soft, No tenderness Heart: Regular rate Extremities: Other (severe edema R LE) General: Alert, Oriented X3, No acute distress Lungs: Clear to auscultation Plan Plan of Care 1. Lymphadenopathy, POD #2 R groin lymph node excisional biopsy - stable, pain controlled with po meds. Await bone marrow bx in AM, should be able to discharge home after recovery from that. Comment Review of Relevant I have reviewed the following items colleen (where applicable) has been applied. Medications Current Medications Acetaminophen/ Hydrocodone Bitart (Lortab 5/325) 1 tab PRN Q4HRS PRN PO MILD PAIN Last administered on 12/26/18at 14:20; Start 12/26/18 at 13:15 Acetaminophen/ Hydrocodone Bitart (Lortab 5/325) 2 tab PRN Q4HRS PRN PO MODERATE PAIN, SEVERE PAIN Last administered on 12/30/18at 09:44; Start 12/26/18 at 13:15 Enoxaparin Sodium (Lovenox 40mg Syringe) 40 mg Q24H SQ Last administered on 12/29at 15:36; Start 12/26/18 at 14:00 Iohexol (Omnipaque 300 Mg/ml) 75 ml 1X ONCE IV Last administered on 12/26/18at 16:00; Start 12/26/18 at 15:00; Stop 12/26/18 at 15:01; Status DC Iohexol (Omnipaque 240 Mg/ml) 30 ml 1X ONCE PO Last administered on 12/26/18at 15:00; Start 12/26/18 at 15:00; Stop 12/26/18 at 15:01; Status DC Info (CONTRAST GIVEN -- Rx MONITORING) 1 each PRN DAILY PRN MC SEE COMMENTS; Start 12/26/18 at 15:00; Stop 12/28/18 at 14:59; Status DC Sodium Chloride 1,000 ml @ 100 mls/hr Q10H IV Last administered on 12/29/18at 12 :18; Start 12/26/18 at 16:00; Stop 12/29/18 at 13:05; Status DC Gadobutrol (Gadavist) 9 mmol 1X ONCE IV Last administered on 12/26/18at 16:30; Start 12/26/18 at 16:30; Stop 12/26/18 at 16:31; Status DC Ondansetron HCl (Zofran) 4 mg PRN Q6HRS PRN IV NAUSEA/VOMITING; Start 12/28/18 at 07:00; Stop 12/28/18 at 15:44; Status DC Fentanyl Citrate (Fentanyl 2ml Vial) 25 mcg PRN Q5MIN PRN IV MILD PAIN; Start 12/28/18 at 07:00; Stop 12/28/18 at 15:42; Status DC Fentanyl Citrate (Fentanyl 2ml Vial) 50 mcg PRN Q5MIN PRN IV MODERATE TO SEVERE PAIN; Start 12/28/18 at 07:00; Stop 12/28/18 at 15:43; Status DC Morphine Sulfate (Morphine Sulfate) 1 mg PRN Q10MIN PRN IV SEVERE PAIN; Start 12/28/18 at 07:00; Stop 12/28/18 at 15:43; Status DC Ringer's Solution 1,000 ml @ 30 mls/hr Q24H IV Last administered on 12/28/18at 08:29; Start 12/28/18 at 07:00; Stop 12/28/18 at 18:59; Status DC Lidocaine HCl (Xylocaine-Mpf 1% 2ml Vial) 2 ml PRN 1X PRN ID IV START; Start at 07:00; Stop 12/28/18 at 15:43; Status DC Hydromorphone HCl (Dilaudid) 0.5 mg PRN Q10MIN PRN IV SEV PAIN, Second choice; Start 12/28/18 at 07:00; Stop 12/28/18 at 15:43; Status DC Prochlorperazine Edisylate (Compazine) 5 mg PACU PRN PRN IV NAUSEA, MRX1; Start 12/28/18 at 07:00; Stop 12/28/18 at 15:44; Status DC Nicotine (Nicoderm Cq 14mg) 1 patch PRN DAILY PRN TD SMOKING CESSATION Last administered on 12/29/18at 19:46; Start 12/27/18 at 19:15 Alprazolam (Xanax) 0.5 mg PRN Q8HRS PRN PO ANXIETY / AGITATION Last administered on 12/27/18at 19:32; Start 12/27/18 at 19:15 Cefazolin Sodium/ Dextrose 50 ml @ 100 mls/hr 1X PREOP IV Last administered on 12/28/18at 09:25; Start 12/28/18 at 05:00; Stop 12/28/18 at 05:29; Status DC Midazolam HCl (Versed) 2 mg STK-MED ONCE .ROUTE ; Start 12/28/18 at 08:33; Stop 12/28/18 at 08:34; Status DC Propofol 20 ml @ As Directed STK-MED ONCE IV ; Start 12/28/18 at 08:33; Stop 12/28 at 08:34; Status DC Lidocaine HCl (Lidocaine Pf 2% Vial) 5 ml STK-MED ONCE .ROUTE ; Start 12/28/18 at 08:33; Stop 12/28/18 at 08:34; Status DC Sevoflurane (Ultane) 15 ml STK-MED ONCE IH ; Start 12/28/18 at 08:37; Stop at 08:38; Status DC Bupivacaine HCl/ Epinephrine Bitart (Sensorcaine-Epi 0.25%-1:107856 Mpf) 30 ml STK-MED ONCE .ROUTE Last administered on 12/28/18at 09:49; Start 12/28/18 at 09:14 ; Stop 12/28/18 at 09:15; Status DC Fentanyl Citrate (Fentanyl 2ml Vial) 100 mcg STK-MED ONCE .ROUTE ; Start at 09:50; Stop 12/28/18 at 09:51; Status DC Dexamethasone Sodium Phosphate (Decadron) 20 mg STK-MED ONCE .ROUTE ; Start 12/28 at 09:50; Stop 12/28/18 at 09:51; Status DC Phenylephrine HCl (Maxwell-Synephrine Inj) 10 mg STK-MED ONCE .ROUTE ; Start at 09:50; Stop 12/28/18 at 09:51; Status DC Ondansetron HCl (Zofran) 4 mg STK-MED ONCE .ROUTE ; Start 12/28/18 at 09:52; Stop 12/28/18 at 09:53; Status DC Active Scripts Active [place] 5-325 Tablet (Acetaminophen/Hydrocodone Bitart) 1 Each Tablet 1 Tab PO Q6HRS Diclofenac Sodium 50 Mg Tablet. 1 Tab PO BID Cyclobenzaprine Hcl 10 Mg Tablet 1 Tab PO TID PRN Vitals/I & O Vital Sign - Last 24 Hours 12/29/18 12/29/18 12/29/18 12/29/18 15:17 19:00 19:36 20:00 Temp 97.8 98.6 97.8 98.6 Pulse 63 68 Resp 16 17 15 B/P (MAP) 121/61 (81) 118/48 (71) Pulse Ox 98 100 98 O2 Delivery Room Air Room Air Room Air Room Air 12/29/18 12/29/18 12/30/18 12/30/18 20:45 22:54 03:00 07:00 Temp 98.6 98.3 98.1 98.6 98.3 98.1 Pulse 71 65 76 Resp 15 18 17 18 B/P (MAP) 134/73 (93) 115/67 (83) 124/76 (92) Pulse Ox 98 97 99 100 O2 Delivery Room Air Room Air Room Air Room Air 12/30/18 12/30/18 09:44 10:40 Temp 98.0 98.0 Pulse 74 Resp 20 18 B/P (MAP) 126/72 (90) Pulse Ox 94 100 O2 Delivery Room Air Room Air RAMYA MCNEAL MD Dec 30, 2018 11:59
[2018-12-30] MEDS: ENOXAPARIN 40 MG/0.4 ML SYRINGE. SQ SCH (13:56)
[2018-12-30 14:35] VITALS: BP 109/61
[2018-12-30 19:00] VITALS: BP 112/73
[2018-12-30] MEDS: NICOTINE 14MG PATCH. TD PRN (20:46)
[2018-12-30 23:00] VITALS: BP 124/74
[2018-12-31] VITALS (13 sets, daily range): BP systolic 74–131; BP diastolic 49–88
--- NOTE | 2018-12-31 08:42 | PDOC ---
SUBJECTIVE Subjective S: Lymph node biopsy went fine on Monday, pending bone marrow biopsy this morning. Ortho did not think acute surgical intervention necessary, and radiation oncology awaiting path. O: Physical exam: Gen.: Well-nourished and well-developed, resting in bed Lungs: Breathing comfortably with no evidence of respiratory distress Extremities: Edematous right lower extremity, bandage over inguinal region Skin: Warm and dry Psychiatric: Pleasant mood and affect Labs: CBC normal Assessment and Plan: Junior is a 23-year-old man with right femur mass and inguinal lymphadenopathy, symptoms worsening since July with significant right leg swelling and just recently some numbness at his foot, as well as pain. Status post inguinal lymph node biopsy on Monday and bone marrow biopsy pending this morning. He can be discharged post bone marrow with follow-up with us as outpatient as soon as path available. Inguinal lymphadenopathy and large mass surrounding femur: bx pending Abnormal marrow signal for 17.5 cm on MRI: Concern for lymphoma as well, LDH slightly elevated but not markedly, bone marrow biopsy today Right lower extremity swelling: OT for lymphedema has been consulted as well as compression and DVT prophylaxis (on hold for bx) History of tobacco and marijuana: Recommend cessation upon discharge path fx risk: orthopedics and radiation oncology have seen, no acute interventions necessary. Disposition: After biopsy today is fine, with outpatient follow-up with us Thank you kindly, and please don't hesitate to call with further questions. OBJECTIVE Vital Signs Vital Signs Date Time Temp Pulse Resp B/P (MAP) Pulse Ox O2 Delivery O2 Flow Rate FiO2 12/31/18 03:00 98.6 77 18 119/64 (82) 100 Room Air 98.6 12/30/18 23:00 98.9 69 18 124/74 (91) 100 Room Air 98.9 12/30/18 19:45 Room Air 12/30/18 19:00 98.2 80 17 112/73 (86) 100 Room Air 98.2 12/30/18 14:35 97.8 81 18 109/61 (77) 99 Room Air 97.8 12/30/18 10:50 20 94 Room Air 12/30/18 10:40 98.0 74 18 126/72 (90) 100 Room Air 98.0 12/30/18 09:44 20 94 Room Air I & O Intake and Output 12/31/18 07:00 Intake Total 900 ml Balance 900 ml Intake Oral 900 ml # Voids 2 SHELL LINDSAY MD Dec 31, 2018 08:42
--- NOTE | 2018-12-31 09:05 | PDOC ---
SURGICAL PROGRESS NOTE Subjective doing well no drainage from bx site Vital Signs Vital Signs Date Time Temp Pulse Resp B/P (MAP) Pulse Ox O2 Delivery O2 Flow Rate FiO2 12/31/18 07:00 98.1 81 16 110/59 (76) 100 Room Air 98.1 I&O Intake and Output 12/31/18 07:00 Intake Total 900 ml Balance 900 ml Intake Oral 900 ml # Voids 2 General: Alert, Oriented X3, Cooperative, No acute distress Skin: Other (bx site c/d/i, no erythema ) Assessment/Plan s/p bx as per medical care will be available if needed JUDY MEDRANO APRN Dec 31, 2018 09:05
[2018-12-31] MEDS ORDERED: LIDOCAINE WITH 8.4% SOD BICARB 3 ML DISP.SYRIN. ONE (09:45)
--- NOTE | 2018-12-31 09:53 | PDOC ---
SUBJECTIVE Subjective Pt to be getting bone marrow biopsy today. Pain well controlled. Interested in lymphedema treatment outpatient OBJECTIVE Vital Signs Vital Signs Date Time Temp Pulse Resp B/P (MAP) Pulse Ox O2 Delivery O2 Flow Rate FiO2 12/31/18 07:00 98.1 81 16 110/59 (76) 100 Room Air 98.1 12/31/18 03:00 98.6 77 18 119/64 (82) 100 Room Air 98.6 12/30/18 23:00 98.9 69 18 124/74 (91) 100 Room Air 98.9 12/30/18 19:45 Room Air 12/30/18 19:00 98.2 80 17 112/73 (86) 100 Room Air 98.2 12/30/18 14:35 97.8 81 18 109/61 (77) 99 Room Air 97.8 12/30/18 10:50 20 94 Room Air 12/30/18 10:40 98.0 74 18 126/72 (90) 100 Room Air 98.0 I & O Intake and Output 12/31/18 06:59 Intake Total 900 ml Balance 900 ml Intake Oral 900 ml # Voids 2 PHYSICAL EXAM Physical Exam GEN: NAD, AOx3 HEENT: MMM, EOMI, no scleral icterus/injection Cardiac: RRR, no M/R/G Lungs: CTAB, regular breathing rate and effort Ext: significant swelling right lower extremity Neuro: CN2-12 GI ASSESSMENT/PLAN Assessment/Plan Pt is a 23yo AAM admitted for RLE swelling 1)Lymphadenopathy, POD #3 R groin lymph node excisional biopsy. Pt to be getting BM bx today. Likely discharge after. Will write script for Roy. Interested in lymphedema treatment outpatient 2)PEM-KATELIN Gonzales MD Dec 31, 2018 09:53
[2018-12-31 10:05] LABS: BASO # 0.1 x10^3/uL (0.0-0.2); BASO % 2 % (0-3); EOS # 0.2 x10^3/uL (0.0-0.7); EOS % 4 % (0-3); HEMATOCRIT 43.8 % (39.0-53.0); HEMOGLOBIN 14.1 g/dL (13.0-17.5); LYMPH # 0.7 x10^3/uL (1.0-4.8); LYMPH % 11 % (24-48); MEAN CORPUSCULAR HEMOGLOBIN 27 pg (25-35); MEAN CORPUSCULAR HGB CONC 32 g/dL (31-37); MEAN CORPUSCULAR VOLUME 82 fL (79-100); MONO # 0.8 x10^3/uL (0.0-1.1); MONO % 12 % (0-9); NEUT # 5.1 x10^3uL (1.8-7.7); NEUT % 73 % (31-73); PLATELET COUNT 446 x10^3/uL (140-400); RED BLOOD COUNT 5.32 x10^6/uL (4.30-5.70); RED CELL DISTRIBUTION WIDTH 16.2 % (11.5-14.5)
[2018-12-31] MEDS ORDERED: fentaNYL PF VIAL 100 MCG/2 ML VIAL ONE (10:14)
[2018-12-31] MEDS ORDERED: MIDAZOLAM HCL/PF 2 MG/2 ML VIAL. ONE (10:14)
[2018-12-31 10:27] LABS: PROTHROMBIN TIME PATIENT 13.8 SEC (11.7-14.0)
[2018-12-31] MEDS ORDERED: fentaNYL PF VIAL 100 MCG/2 ML VIAL IV ONE (10:30)
[2018-12-31] MEDS ORDERED: LIDOCAINE WITH 8.4% SOD BICARB 3 ML DISP.SYRIN. IJ ONE (10:30)
[2018-12-31] MEDS ORDERED: MIDAZOLAM HCL/PF 2 MG/2 ML VIAL. IV ONE (10:30)
--- NOTE | 2018-12-31 11:34 | NUR ---
SW following. Discussed with RN, pt having a bone marrow biopsy today. RN advised pt may be able to discharge home with self care after the procedure. No SW needs.
--- NOTE | 2018-12-31 11:44 | PDOC ---
MODERATE SEDATION ASSESSMENT RISKS/ALTERNATIVES Risks/Alternatives Risks and alternatives of this type of sedation and procedure discussed with: RISK/ALTERNATIVES: Patient H & P ON CHART H & P H & P on chart and reviewed for co-morbid conditions and appropriate labs. H&P ON CHART: Yes STATUS PREG STATUS ASSESSED: Yes MEDS/ALLERGIES REVIEWED Meds/Allergies Reviewed Medications and Allergies including time and route of recently administered narcotics and sedatives. MEDS/ALLERGIES REVIEWED: Yes ASA RATING ASA RATING: II AIRWAY ASSESSMENT Airway Assessment Airway patency, oral function limitations, presence of caps, crowns, dentures, partials, and ability to extend neck assessed. AIRWAY ASSESSMENT: Yes MALLAMPATI SCORE MALLAMPATI SCORE: II PRE-SEDATION ASSESSMENT PRE-SEDATION ASSESSMENT: Yes MIYA ZAVALA MD Dec 31, 2018 11:44
--- NOTE | 2018-12-31 11:45 | PDOC ---
BRIEF OPERATIVE NOTE Pre-Op Diagnosis Possible lymphoma Post-Op Diagnosis same Procedure Performed CT bone marrow biopsy Surgeon Salma Anesthesia Type: Conscious Sedation Findings 2 x 3cc aspirates and 1 x 10g core Complications No immediate MIYA ZAVALA MD Dec 31, 2018 11:45
[2018-12-31] MEDS: ENOXAPARIN 40 MG/0.4 ML SYRINGE. SQ SCH (14:00)
--- NOTE | 2018-12-31 15:05 | NUR ---
Held 1400 Lovonox dose d/t <10 hrs post procedure.
--- NOTE | 2018-12-31 16:12 | PDOC ---
Provider Note Provider Note 23 yo man with right pelvic mass with marrow involvoement of prox femur. Appreciate ortho eval. Not at path fx risk and therefore no intervention needed. BMBx just done. He did well with min soreness now at bx site. Open bx of inguinal LN was benign with normal flow. 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 Await BMBx result. Anticipate that he will need CT guided bx of pelvic mass as outpatient to make dx. We will discuss at oncology conference 01/01/2019. JASMYNE STEVENS MD Dec 31, 2018 16:12
--- NOTE | 2018-12-31 19:15 | NUR ---
Discharge Note: [facility] LAST [facility] Discharge instructions and discharge home medications reviewed with Patient and a copy given. All questions have been answered and understanding verbalized. The following instructions and handouts were given: Follow up with oncology for biopsy results and needle biopsy. Given prescription for hydrocodone 5/325 and handout on lymphedema Discontinued lines and drains: Peripheral IV intact. Patient discharged to Home or Self Care withFamily Membera Wheelchair With Scarlett NATH
--- NOTE | 2019-01-01 08:51 | RAD ---
Procedure: CT-guided bone marrow aspiration and biopsy Clinical Indication: 23-year-old with pelvic mass, possible lymphoma Sedation: Conscious sedation was administered with a total intraprocedural [id number] time of 12 minutes. The patient was monitored by a qualified independent observer throughout the time of sedation. Please refer to the medical record for exact doses of medications utilized to achieve moderate sedation. Antibiotics: None Fluoro Time: Not applicable Contrast: None Sterility: The procedure was performed in its entirety using appropriate elements of sterile technique. Consent: The procedure was explained in its entirety to the patient or the patients designated medical representative by a member of the treatment team, including a discussion of the risks, benefits and commonly accepted alternatives to the procedure, as well as the expected consequences of no therapy whatsoever. Discussion of the risks included, but was not limited to, those that are most frequent and those that are rare but possibly severe or life-threatening, as well as the possibility of unforeseen complications. Technique and Findings: Following informed consent, the patient was prepped and draped in usual sterile fashion. Preliminary CT scan of the area of interest was performed. 1% Lidocaine was used to achieve local anesthesia. Under periodic CT surveillance, an 11-gauge needle was advanced through the cortex of the posterior superior iliac spine and 2 separate 2 mL marrow aspirates were obtained and preserved on site by the certified pathology assistant. A single 11-gauge core biopsy specimen was then obtained and preserved in formalin. The needle was then removed and hemostasis was achieved with manual compression. Complications: No immediate Impression: 1. CT-guided bone marrow aspiration and biopsy as described PQRS Compliance Statement: One or more of the following individualized dose reduction techniques were utilized for this examination: 1. Automated exposure control 2. Adjustment of the mA and/or kV according to patient size 3. Use of iterative reconstruction technique
--- NOTE | 2019-01-01 09:10 | PATHOLOGY ---
[facility] Accession Number: [id number] . 01 Material submitted: . RIGHT GROIN LYMPH NODE . 02 Diagnosis: Lymph node and perinodal fibroadipose tissue, right groin lymph node excisional biopsy: - Reactive lymphoid hyperplasia. (JPM:[facility] 12/31/2018) QTP/12/31/2018 . 02 Comment: Sections of the right groin lymph node reveal lymph node and perinodal fibroadipose tissue. The architecture of the lymph node appears preserved. There are foci of paracortical expansion composed predominantly of small lymphocytes having a high N/C ratio and rounded to slightly irregular nuclei. There are focally admixed reticulum cells within the paracortex. There are plasma cells present within the medullary regions of the lymph node. The lymph node sinuses show sinus histiocytosis. There are no granulomas. There is no evidence of metastatic neoplasm. . A portion of the lymph node is submitted for lymphocyte marker studies by flow cytometry. The specimen viability is 92.7%. Lymphocytes comprise 81.0% of total cells. T-cells comprise 82% of lymphoid cells and show a CD4/CD8 ratio of 5.0. NK-cells comprise 2% of lymphoid cells. Mature B-cells comprise 24% of lymphoid cells and are polyclonal with a kappa:lambda ratio of 1.3. Monocytes comprise 5.9% of total cells. Granulocytes comprise 2.3% of total cells. . 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 There is no evidence of malignancy. (JPM:[facility] 12/31/2018) . 02 Electronically signed: . Edvin Kuhn MD, Pathologist NPI- [id number] . 01 Gross description: . Received fresh, labeled, "[place], Christopher - Right groin lymph node", is a segment of yellow-red fatty tissue measuring up to 2.5 x 1.2 x 0.9 cm. Sectioning reveals a soft reddish-brown lymph node having a central pale aguilar core, which measures up to 1.4 cm in greatest dimension. Two Touch Preparations are prepared and submitted for H and E staining. A insurance claims representative portion of the specimen is submitted fresh in RPMI for lymphocyte marker studies by flow cytometry. All is submitted for microscopy as A1 and A2. (JPM:mml/pit; 12/28/2018) [facility]/QLM . 02 Pathologist provided ICD-10: R59.0 . 02 CPT . 541571 Specimen Comment: A courtesy copy of this report has been sent to Specimen Comment: [phone], . Specimen Comment: Report sent to and Specimen Comment: A duplicate report has been generated due to demographic updates. Performed at: 01 [facility] [address], [place], [place] [id number] MD Dao Bar MD Phone: [phone] Performed at: 02 [facility] [address], [place] [id number] MD Edvin Kuhn MD Phone: [phone]
--- NOTE | 2019-01-09 14:11 | PATHOLOGY ---
[facility] Accession Number: [id number] . 01 Material submitted: . PART A: BONE MARROW BIOPSY PART B: BONE MARROW CLOT PART C: BONE MARROW ASPIRATE SMEARS PART D: PERIPHERAL SMEARS PART E: BONE MARROW FLOW . 01 Clinical history: . None provided . 02 Diagnosis: Peripheral smear: - Thrombocytosis, mild. . Bone marrow, aspirate smears, clot section, and core biopsy: - Normocellular marrow showing trilineage hematopoiesis, no significant dyspoiesis, and mild megakaryocytic hyperplasia. - Adequate reticuloendothelial iron stores. (JPM:barbara; 01/09/2019) QMS/01/09/2019 . 02 Comment: The peripheral smear shows mild thrombocytosis. The bone marrow appears normocellular and shows trilineage hematopoiesis, no significant dyspoiesis, and mild megakaryocytic hyperplasia. The thrombocytosis appears reactive. There is no morphologic evidence of marrow involvement by malignant lymphoma or metastatic neoplasm. Flow cytometric analysis shows no immunophenotypic evidence of non-Hodgkin's lymphoma, increase in blasts, or plasma cell neoplasm. Bone marrow cytogenetic analysis is normal. (JPM:barbara; 01/09/2019) . . Special stains performed: Reticulin stain on A1, iron stain on B1, and an iron stain on C1 of the aspirate smear. . 02 Electronically signed: . Edvin Kuhn MD, Pathologist NPI- [id number] . 01 Gross description: . A. The specimen is received in formalin, labeled "Junior Kenyon, BM BX". Received is a single needle core of light davis bone measuring 1.7 cm in length by 0.3 cm in diameter. The specimen is submitted entirely in cassette A1, following light decalcification. . B. The specimen is received in formalin, labeled "Junior Kenyon, BM aspirate clot". Received is blood coagulum measuring 1.0 x 1.0 x 0.1 cm in aggregate dimensions. The specimen is filtered and entirely submitted in cassette B1. (CAA; 12/31/2018) QA/QAC . 02 Microscopic: . Laboratory Data: The CBC results are dated 12/31/18. The WBC count is 7.0 K/CMM, and the automated WBC differential reveals 73% neutrophils, 11% lymphs, 12% monos, 4% eos, and 2% baso. The RBC count is 5.32 M/CMM, hemoglobin 14.1 G/DL, hematocrit 43.8%, MCV 82 FL, MCH 27 PG, MCHC 32 G/DL, and the RDW is 16.2%. The platelet count is 446 K/CMM. The total protein is 7.2 G/DL, albumin 3.2 G/DL, and the globulin is 4.0 G/DL. The calcium is 8.4 MG/DL, and the creatinine is 1.2 MG/DL. The LDH is 316 U/L. . Peripheral Smear: The peripheral smear is reviewed. The WBC count is normal. The WBC differential reveals a predominance of segmented neutrophils, with smaller populations of lymphocytes and monocytes and several eosinophils and basophils noted. There is an occasional circulating myelocyte. There are no circulating blasts and there is no leukoerythroblastic reaction. The lymphocyte population consists predominantly of small lymphocytes. Red blood cells predominantly appear normochromic and normocytic. Red blood cells show mild anisocytosis and range from normocytic to mildly microcytic. There are several target cells noted. Platelets are mildly increased and appear normal in morphology with occasional large and rare giant platelets noted. . Aspirate Smears: Two Juarez's-stained and one iron-stained aspirate smears are examined. The smears contain multiple marrow particles. The M/E ratio is within normal range. Erythroid maturation appears normoblastic. There are no megaloblastic or overt dysplastic changes. Granulopoiesis qualitatively appears normal. There is no significant left shift or dysplastic changes. There is no increase of blasts. Megakaryocytes overall appear mildly increased and are focally clustered. The megakaryocytes are of variable ploidy. There are large megakaryocytes having abundant cytoplasm and lobulated nuclei. There are scattered admixed plasma cells with no significant increase of plasma cells noted. There is no apparent increase of lymphocytes. There is no atypical lymphoreticular infiltrate. There are no cells foreign to the marrow. The iron stained smear shows focally adequate reticuloendothelial iron stores. No ringed sideroblasts are identified. . Bone Marrow Biopsy and Clot Sections: Sections of the bone marrow biopsy reveal a segment of bone marrow showing focal aspiration artifact. Preserved areas of the biopsy are on the order of 60%-70% cellular. The clot sections contain multiple marrow particles, the majority of which range between 30% and 70% cellular. There is a good admixture of erythroid and granulocytic precursors, which are present in varying stages of maturation. There is no increase of blasts. Megakaryocytes overall appear mildly increased and are focally clustered. The megakaryocytes are of variable ploidy. There are large megakaryocytes present having abundant cytoplasm and lobulated nuclei. There is no increase of plasma cells. There are no abnormal lymphoid aggregates, granulomas, or cells foreign to the marrow. A reticulin stain obtained on the biopsy shows no increase of reticulin fibers. An iron stain obtained on the clot section shows adequate reticuloendothelial iron stores. No ringed sideroblasts are identified. . Special Studies: Bone marrow submitted for flow cytometry has a viability of 99.3%. Granulocytes comprise 90.0% of total cells and show phenotypic evidence of maturation. Monocytes comprise 4.3% of total cells. CD45 dim, CD34 positive cells comprise 1.4% of total cells. Plasma cells comprise 0.1% of total cells. Lymphocytes comprise 2.9% of total cells. T-cells comprise 62% of lymphoid cells and show a CD4/CD8 ratio of 2.0. NK-cells comprise 24% of lymphoid cells. Mature B-cells comprise 2% of lymphoid cells and are polyclonal with a kappa:lambda ratio of 1.3. . Bone marrow submitted for cytogenetic analysis shows a normal male karyotype in all cells analyzed. . (JPM:mml/barbara; 01/09/2019) . 02 Pathologist provided ICD-10: D47.3, D75.9 . 02 CPT . 607986, 330845, 244740, 598881, 058838, [id number], 106657, 399976 Specimen Comment: A courtesy copy of this report has been sent to Specimen Comment: [phone], . Specimen Comment: Report sent to / DR PAK Specimen Comment: A duplicate report has been generated due to demographic updates. Performed at: 01 [facility] [address] [facility] [address], [place] [id number] MD Dao Bar MD Phone: [phone] Performed at: 02 [facility] [address] [place] [id number] MD Edvin Kuhn MD Phone: [phone]
--- NOTE | 2019-01-29 11:57 | PDOC3 ---
Discharge Summary Date of Admission: Jan 26, 2019 Date of Discharge: Jan 31, 2019 Admitting Diagnosis comment: RLE Swelling FINAL DIAGNOSIS Lymphedema, Lymphadenopathy, PEM mild Brief Hospital Course Pt is a 23yo AAM admitted for RLE swelling 1)Lymphadenopathy, POD #3 R groin lymph node excisional biopsy. Pt got BM bx done prior to discharge. Given prescription for [place]. Interested in lymphedema treatment outpatient 2)PEM-mild CONDITION AT DISCHARGE: Stable Discharge Medications Current Medications Acetaminophen/ Hydrocodone Bitart (Lortab 5/325) 1 tab PRN Q4HRS PRN PO MILD PAIN Last administered on 12/26/18at 14:20; Start 12/26/18 at 13:15; Stop 12/31/18 at 19:18; Status DC Acetaminophen/ Hydrocodone Bitart (Lortab 5/325) 2 tab PRN Q4HRS PRN PO MODERATE PAIN, SEVERE PAIN Last administered on 12/30/18at 09:44; Start 12/26/18 at 13:15; Stop 12/31/18 at 19:18; Status DC Enoxaparin Sodium (Lovenox 40mg Syringe) 40 mg Q24H SQ Last administered on 12/29at 15:36; Start 12/26/18 at 14:00; Stop 12/31/18 at 19:18; Status DC Iohexol (Omnipaque 300 Mg/ml) 75 ml 1X ONCE IV Last administered on 12/26/18at 16:00; Start 12/26/18 at 15:00; Stop 12/26/18 at 15:01; Status DC Iohexol (Omnipaque 240 Mg/ml) 30 ml 1X ONCE PO Last administered on 12/26/18at 15:00; Start 12/26/18 at 15:00; Stop 12/26/18 at 15:01; Status DC Info (CONTRAST GIVEN -- Rx MONITORING) 1 each PRN DAILY PRN MC SEE COMMENTS; Start 12/26/18 at 15:00; Stop 12/28/18 at 14:59; Status DC Sodium Chloride 1,000 ml @ 100 mls/hr Q10H IV Last administered on 12/29/18at 12 :18; Start 12/26/18 at 16:00; Stop 12/29/18 at 13:05; Status DC Gadobutrol (Gadavist) 9 mmol 1X ONCE IV Last administered on 12/26/18at 16:30; Start 12/26/18 at 16:30; Stop 12/26/18 at 16:31; Status DC Ondansetron HCl (Zofran) 4 mg PRN Q6HRS PRN IV NAUSEA/VOMITING; Start 12/28/18 at 07:00; Stop 12/28/18 at 15:44; Status DC Fentanyl Citrate (Fentanyl 2ml Vial) 25 mcg PRN Q5MIN PRN IV MILD PAIN; Start 12/28/18 at 07:00; Stop 12/28/18 at 15:42; Status DC Fentanyl Citrate (Fentanyl 2ml Vial) 50 mcg PRN Q5MIN PRN IV MODERATE TO SEVERE PAIN; Start 12/28/18 at 07:00; Stop 12/28/18 at 15:43; Status DC Morphine Sulfate (Morphine Sulfate) 1 mg PRN Q10MIN PRN IV SEVERE PAIN; Start 12/28/18 at 07:00; Stop 12/28/18 at 15:43; Status DC Ringer's Solution 1,000 ml @ 30 mls/hr Q24H IV Last administered on 12/28/18at 08:29; Start 12/28/18 at 07:00; Stop 12/28/18 at 18:59; Status DC Lidocaine HCl (Xylocaine-Mpf 1% 2ml Vial) 2 ml PRN 1X PRN ID IV START; Start at 07:00; Stop 12/28/18 at 15:43; Status DC Hydromorphone HCl (Dilaudid) 0.5 mg PRN Q10MIN PRN IV SEV PAIN, Second choice; Start 12/28/18 at 07:00; Stop 12/28/18 at 15:43; Status DC Prochlorperazine Edisylate (Compazine) 5 mg PACU PRN PRN IV NAUSEA, MRX1; Start 12/28/18 at 07:00; Stop 12/28/18 at 15:44; Status DC Nicotine (Nicoderm Cq 14mg) 1 patch PRN DAILY PRN TD SMOKING CESSATION Last administered on 12/30/18at 20:46; Start 12/27/18 at 19:15; Stop 12/31/18 at 19:18 ; Status DC Alprazolam (Xanax) 0.5 mg PRN Q8HRS PRN PO ANXIETY / AGITATION Last administered on 12/27/18at 19:32; Start 12/27/18 at 19:15; Stop 12/31/18 at 19:18; Status DC Cefazolin Sodium/ Dextrose 50 ml @ 100 mls/hr 1X PREOP IV Last administered on 12/28/18at 09:25; Start 12/28/18 at 05:00; Stop 12/28/18 at 05:29; Status DC Midazolam HCl (Versed) 2 mg STK-MED ONCE .ROUTE ; Start 12/28/18 at 08:33; Stop 12/28/18 at 08:34; Status DC Propofol 20 ml @ As Directed STK-MED ONCE IV ; Start 12/28/18 at 08:33; Stop 12/28 at 08:34; Status DC Lidocaine HCl (Lidocaine Pf 2% Vial) 5 ml STK-MED ONCE .ROUTE ; Start 12/28/18 at 08:33; Stop 12/28/18 at 08:34; Status DC Sevoflurane (Ultane) 15 ml STK-MED ONCE IH ; Start 12/28/18 at 08:37; Stop at 08:38; Status DC Bupivacaine HCl/ Epinephrine Bitart (Sensorcaine-Epi 0.25%-1:722943 Mpf) 30 ml STK-MED ONCE .ROUTE Last administered on 12/28/18at 09:49; Start 12/28/18 at 09:14 ; Stop 12/28/18 at 09:15; Status DC Fentanyl Citrate (Fentanyl 2ml Vial) 100 mcg STK-MED ONCE .ROUTE ; Start at 09:50; Stop 12/28/18 at 09:51; Status DC Dexamethasone Sodium Phosphate (Decadron) 20 mg STK-MED ONCE .ROUTE ; Start 12/28 at 09:50; Stop 12/28/18 at 09:51; Status DC Phenylephrine HCl (Maxwell-Synephrine Inj) 10 mg STK-MED ONCE .ROUTE ; Start at 09:50; Stop 12/28/18 at 09:51; Status DC Ondansetron HCl (Zofran) 4 mg STK-MED ONCE .ROUTE ; Start 12/28/18 at 09:52; Stop 12/28/18 at 09:53; Status DC Lidocaine/Sodium Bicarbonate (Buffered Lidocaine 1%) 3 ml STK-MED ONCE .ROUTE ; Start 12/31/18 at 09:45; Stop 12/31/18 at 09:46; Status DC Midazolam HCl (Versed) 2 mg STK-MED ONCE .ROUTE ; Start 12/31/18 at 10:14; Stop 12/31/18 at 10:15; Status DC Fentanyl Citrate (Fentanyl 2ml Vial) 100 mcg STK-MED ONCE .ROUTE ; Start at 10:14; Stop 12/31/18 at 10:15; Status DC Lidocaine/Sodium Bicarbonate (Buffered Lidocaine 1%) 3 ml 1X ONCE IJ Last administered on 12/31/18at 10:43; Start 12/31/18 at 10:30; Stop 12/31/18 at 10:32 ; Status DC Midazolam HCl (Versed) 2 mg 1X ONCE IV Last administered on 12/31/18at 10:43; Start 12/31/18 at 10:30; Stop 12/31/18 at 10:32; Status DC Fentanyl Citrate (Fentanyl 2ml Vial) 100 mcg 1X ONCE IV Last administered on at 10:44; Start 12/31/18 at 10:30; Stop 12/31/18 at 10:32; Status DC Active Scripts Active No Active Prescriptions or Reported Medications Allergies Allergies Coded Allergies Type Severity Reaction Last Updated Verified No Known Drug Allergies 10/25/18 No Disposition/Orders: D/C to Home KATELIN HOOD MD Jan 29, 2019 11:57
== END 2018-12-31 18:20 | disposition home or self-care (01) | DRG 803 ==
LOC: 5 SOUTH 12:43
PROVIDERS: ADMIT Family Medicine; ATTEND Family Medicine
PROC: 07BF0ZX Excision of Right Lower Extremity Lymphatic, Open Approach, Diagnostic (ICD-10-PCS; principal; 2018-12-26)
PROC: 07DR3ZX Extraction of Iliac Bone Marrow, Percutaneous Approach, Diagnostic (ICD-10-PCS; 2018-12-31)
DX: R59.1 Generalized enlarged lymph nodes (principal); E44.1 Mild protein-calorie malnutrition; F17.210 Nicotine dependence, cigarettes, uncomplicated; Z80.52 Family history of malignant neoplasm of bladder; Z82.5 Family history of asthma and other chronic lower respiratory diseases; Z83.3 Family history of diabetes mellitus; Z79.899 Other long term (current) drug therapy; Z87.11 Personal history of peptic ulcer disease
CPT/HCPCS: 36415; 38222; 71260; 72197; 74177; 77012; 80048; 80053; 83615; 84443; 85025; 85610; 85730; 88184; 88185; 88237; 88305; 88307; 88311; 88313; 93971; 99152; A9585; C1892; J0696; J1100; J1650; J2001; J2250; J2405; J2704; J3010; J7030; J7120; Q9966; Q9967; 97140

== ENCOUNTER → 2019-01-25 | Outpatient (CLI) | payer OTHER ==
[2018-12-31 15:00] VITALS: BP 123/88
--- NOTE | 2019-01-25 15:25 | CARD ---
MR#: [id number] Date of Study: 01/25/2019 Ordering Physician: PEACE PENG, Referring Physician: PEACE PENG, Tech: Shirley Robbins APPROVED REPORT EXAM: Two-dimensional and M-mode echocardiogram with Doppler and color Doppler. Other Information Quality : GoodHR: 71bpm INDICATION Lymphoma RISK FACTORS Smoking 2D DIMENSIONS Left Atrium(2D)3.8 (1.6-4.0cm)IVSd0.9 (0.7-1.1cm) Aortic Root(2D)3.0 (2.0-3.7cm)LVDd5.4 (3.9-5.9cm) LVOT Diameter2.2 (1.8-2.4cm)PWd0.9 (0.7-1.1cm) LVDs3.7 (2.5-4.0cm)FS (%) 31.1 % SV82.5 mlLVEF(%)58.3 (>50%) Aortic Valve AoV Peak Roscoe.132.8cm/sAoV VTI28.6cm AO Peak GR.7.1mmHgLVOT Peak Roscoe.103.0cm/s AO Mean GR.4mmHgAVA (VMAX)2.83cm2 Mitral Valve MV E Ijglqcly72.5cm/sMV DECEL LECR313ck MV A Ehqorkaz92.3cm/sE/A Ratio1.8 Pulmonary Valve PV Peak Czicoeok596.9cm/s Tricuspid Valve TR P. Naopzrpn569gm/sRAP KPRHDZHK9jfBz TR Peak Gr.53heEtQIBQ20hgOx Pulmonary Vein S1 Mopscitt25.2cm/sD2 Eqnrdfaw21.8cm/s PVa frcdmknd773almo LEFT VENTRICLE The left ventricle is normal size. There is normal left ventricular wall thickness. The left ventricu lar systolic function is normal and the ejection fraction is within normal range. The Ejection Fracti on is 55-60%. There is normal LV segmental wall motion. The left ventricular diastolic function and f illing is normal for age. RIGHT VENTRICLE The right ventricle is normal size. There is normal right ventricular wall thickness. The right ventr icular systolic function is normal. ATRIA The left atrium size is normal. The right atrium size is normal. The interatrial septum is intact wit h no evidence for an atrial septal defect or patent foramen ovale as noted on 2-D or Doppler imaging. AORTIC VALVE The aortic valve is normal in structure and function. Doppler and Color Flow revealed no significant aortic regurgitation. There is no significant aortic valvular stenosis. MITRAL VALVE The mitral valve is normal in structure and function. There is no evidence of mitral valve prolapse. There is no mitral valve stenosis. Doppler and Color-flow revealed trace mitral regurgitation. TRICUSPID VALVE The tricuspid valve is normal in structure and function. Doppler and Color Flow revealed trace to tra ce tricuspid regurgitation with an estimated PAP of 30 mmHg. There is no tricuspid valve prolapse or vegetation. There is no tricuspid valve stenosis. PULMONIC VALVE The pulmonary valve is normal in structure and function. Doppler and Color Flow revealed no pulmonic valvular regurgitation. GREAT VESSELS The aortic root is normal in size. The IVC is normal in size and collapses >50% with inspiration. PERICARDIAL EFFUSION There is no evidence of significant pericardial effusion. Critical Notification Critical Value: No <Conclusion> The left ventricle is normal size. The left ventricular systolic function is normal and the ejection fraction is within normal range. The Ejection Fraction is 55-60%. There is normal LV segmental wall motion. There is no significant aortic valvular stenosis. Doppler and Color Flow revealed no significant aortic regurgitation. Doppler and Color-flow revealed trace mitral regurgitation. Doppler and Color Flow revealed trace to trace tricuspid regurgitation with an estimated PAP of 30 mm Hg. There is no evidence of significant pericardial effusion. Signed by : Kiko Mensah MD Electronically Approved : 01/25/2019 15:24:48
== END | disposition home or self-care (01) ==
LOC: ECHO 11:31
PROVIDERS: ATTEND Internal Medicine Hematology & Oncology
DX: C83.38 Diffuse large B-cell lymphoma, lymph nodes of multiple sites (principal); Z87.891 Personal history of nicotine dependence
CPT/HCPCS: 93306

== ENCOUNTER → 2019-04-09 | Outpatient (CLI) | payer OTHER ==
[2018-12-31 15:00] VITALS: BP 123/88
[~2019-04-09] MED LIST changes: +IOHEXOL 240 MG/ML 50ML VIAL. PO ONE; +IOHEXOL 300 MG/ML 100ML VIAL. IV ONE
--- NOTE | 2019-04-09 15:19 | RAD ---
CT of the chest, abdomen and pelvis with contrast, 04/09/2019: HISTORY: Follow-up lymphoma Multidetector CT imaging was performed following oral and IV administration of contrast. Comparison is made to a CT study from 12/26/[address] images from the 01/17/2019 CT PET exam No pulmonary infiltrate or mass is seen. No mediastinal or hilar adenopathy is evident. A right Port-A-Cath extends to the level of the atriocaval junction. No axillary adenopathy is evident. The liver and spleen are within normal limits in size. No gallbladder abnormality is evident. The pancreas and both kidneys are unremarkable. The abdominal aorta is of normal caliber. No abdominal or pelvic adenopathy is seen. The previously seen large right-sided pelvic mass extending into the right iliac fossa and right groin region has resolved. There is residual patchy sclerosis in the proximal right femur centered in the femoral neck and intertrochanteric regions. No new bony abnormality is seen. A hypermetabolic nodule seen in the right paracolic gutter along the posterior aspect of the ascending colon on the PET/CT exam has also resolved. The bowel loops are not dilated. No free fluid or free air is evident in the abdomen or pelvis. IMPRESSION: 1. Resolution of the large right pelvic/groin mass representing an excellent response to therapy. 2. The small nodule in the right paracolic gutter has also resolved. 3. Residual patchy sclerosis in the proximal right femur. 4. No new abnormality is detected. PQRS Compliance Statement: One or more of the following individualized dose reduction techniques were utilized for this examination: 1. Automated exposure control 2. Adjustment of the mA and/or kV according to patient size 3. Use of iterative reconstruction technique
== END | disposition home or self-care (01) ==
LOC: CT 10:51
PROVIDERS: ATTEND Internal Medicine Hematology & Oncology
DX: C83.38 Diffuse large B-cell lymphoma, lymph nodes of multiple sites (principal); Z95.9 Presence of cardiac and vascular implant and graft, unspecified
CPT/HCPCS: 71260; 74177; Q9966; Q9967

== ENCOUNTER 2020-05-05 11:40 | Emergency (ER) | payer OTHER ==
[~2020-05-05] VITALS: Ht 188 cm; Wt 105.0 kg
[~2020-05-05 11:40] MED LIST changes: -IOHEXOL 240 MG/ML 50ML VIAL. PO ONE; -IOHEXOL 300 MG/ML 100ML VIAL. IV ONE; +OXYC1TAB15 PO; +PROC10TA57 PO
[2020-05-05 12:40] VITALS: BP 143/79
--- NOTE | 2020-05-05 13:29 | PHYS DOC ---
Past Medical History Past Medical History: Cancer (Non-Hodgkin's lymphoma) Past Surgical History: Other (Lymph node biopsy) Smoking Status: Current Every Day Smoker Alcohol Use: Occasionally Drug Use: Marijuana General Adult EDM: Chief Complaint: SEXUALLY TRANSMITTED DISEASE HPI: HPI: Patient is a 24 year old AA male who presents to the emergency department with complaints of white pus from the tip of his penis for the last 4 days. He denies any dysuria, hematuria, increased urinary frequency, abdominal pain, nausea, vomiting, diarrhea, or fever. Patient denies being informed of any exposure to sexually transmitted infection. He currently denies any pain. Review of Systems: Review of Systems: Complete ROS is negative unless otherwise stated in the HPI. Heart Score: Risk Factors: Risk Factors: DM, Current or recent (<one month) smoker, HTN, HLP, family history of CAD, obesity. Risk Scores: Score 0 - 3: 2.5% MACE over next 6 weeks - Discharge Home Score 4 - 6: 20.3% MACE over next 6 weeks - Admit for Clinical Observation Score 7 - 10: 72.7% MACE over next 6 weeks - Early Invasive Strategies Current Medications: Current Medications Medications (Trade) Dose Ordered Sig/Trina Start Time Stop Time Status Last Admin Dose Admin Azithromycin (Zithromax) 1,000 mg 1X ONCE 05/05/20 13:30 05/05/20 13:31 Ceftriaxone Sodium (Rocephin Im) 250 mg 1X ONCE 05/05/20 13:30 05/05/20 13:31 Allergies: Allergies: Allergies Coded Allergies Type Severity Reaction Last Updated Verified No Known Drug Allergies 10/25/18 No Physical Exam: PE: Constitutional: Well developed, well nourished, no acute distress, non-toxic appearance. [] HENT: Normocephalic, atraumatic, bilateral external ears normal, nose normal. [] Eyes: PERRLA, EOMI, conjunctiva normal, no discharge. [] Neck: Normal range of motion, no stridor. [] Cardiovascular:Heart rate regular rhythm Lungs & Thorax: Respirations even and unlabored, no retractions, no respiratory distress Abdomen: soft, no tenderness Skin: Warm, dry, no erythema, no rash. [] Extremities: No cyanosis, ROM intact, no edema. [] Neurologic: Alert and oriented X 3, no focal deficits noted. [] Psychologic: Affect normal, judgement normal, mood normal. [] Current Patient Data: Vital Signs: Vital Signs Date Time Temp Pulse Resp B/P (MAP) Pulse Ox O2 Delivery O2 Flow Rate FiO2 05/05/20 12:40 98.1 77 16 143/79 (100) 96 Room Air 98.1 EKG: EKG: [] Radiology/Procedures: Radiology/Procedures: [] Course & Med Decision Making: Course & Med Decision Making Pertinent Labs and Imaging studies reviewed. (See chart for details) 24-year-old male presents emergency department with concerns of sexually transmitted infection UA was ordered and a gonorrhea and chlamydia per urine. Patient was treated prophylactically with 250 mg of IM Rocephin, and 1 g of PO Zithromax. Patient was instructed to avoid having intercourse until the results of gonorrhea and chlamydia testing are available, patient was notified that these results would not be available for 48 hours. If one or both of these tests is positive, patient needs to refrain from intercourse for approximately 1 week following the treatment of any current partners. [] Dragon Disclaimer: Dragon Disclaimer: This electronic medical record was generated, in whole or in part, using a voice recognition dictation system. Departure Departure Impression: Primary Impression: Contact with and (suspected) exposure to infections with a predominantly sexual mode of transmission Disposition: 01 HOME, SELF-CARE Condition: STABLE Referrals: ZAN PAK MD (PCP) Patient Instructions: Sexually Transmitted Disease, [id number] Additional Instructions: Recommend that you go to your local health department for comprehensive sexually transmitted disease testing. You have been treated for a suspected gonorrhea and chlamydia. Avoid having intercourse until the results of gonorrhea and ch lamydia testing are available, these results will not be available for 48 hours. If one or both of these tests is positive, you need to refrain from intercourse for approximately 1 week following the treatment of any current partners. Follow-up with your primary care doctor if symptoms persist, return to ER symptoms worsen. Justicifation of Admission Dx: Justifications for Admission: Justification of Admission Dx: N/A CHAD LUONG APRN May 05, 2020 13:29
[2020-05-05] MEDS ORDERED: cefTRIAXone IM 250 MG VIAL IM ONE (13:30)
[2020-05-05] MEDS ORDERED: AZITHROMYCIN 250 MG TABLET. PO ONE (13:30)
[2020-05-05 13:45] LABS: BILIRUBIN,URINE NEGATIVE (NEG); CLARITY,URINE CLEAR; COLOR,URINE YELLOW; NITRITE,URINE NEGATIVE (NEG); PH,URINE 6.5 (<5.0-8.0); PROTEIN,URINE NEGATIVE (NEG-TRACE); UROBILINOGEN,URINE 0.2 mg/dL (0.2 mg/dL)
[2020-05-05 14:00] LABS: SQUAMOUS EPITHELIAL CELL,UR FEW /LPF
[2020-05-05 14:01] LABS: BACTERIA,URINE 0 /HPF (0-FEW); WBC,URINE TNTC /HPF (0-4)
== END 2020-05-05 14:49 | disposition home or self-care (01) ==
LOC: ER 11:40
DX: N48.89 Other specified disorders of penis (principal); F17.200 Nicotine dependence, unspecified, uncomplicated; F12.90 Cannabis use, unspecified, uncomplicated; Z85.9 Personal history of malignant neoplasm, unspecified; Z98.890 Other specified postprocedural states; Z20.2 Contact with and (suspected) exposure to infections with a predominantly sexual mode of transmission
CPT/HCPCS: 81001; 87491; 87591; 96372; 99283; J0696

== ENCOUNTER 2020-06-01 00:40 | Emergency (ER) | payer OTHER ==
[~2020-06-01] VITALS: Ht 190.5 cm; Wt 97.7 kg
--- NOTE | 2020-06-01 01:12 | PHYS DOC ---
Past Medical History Past Medical History: Cancer Past Surgical History: Other Smoking Status: Current Every Day Smoker Alcohol Use: Occasionally Drug Use: Marijuana General Adult EDM: Chief Complaint: SEXUALLY TRANSMITTED DISEASE HPI: HPI: Patient is a 24 year old male who presents with complaints of concerns for reoccurrence of an STD. Patient reports that he was treated in March for an STD. He was given a shot and some pills. His symptoms seem to resolve within a week. He seemed to be amps asymptomatic until recently when he began to have some problems with some mucus coming out of the penis. This is not the same character as the one in March and is much more light in amount but still present. He denies dysuria, pain in the testicles, abdominal pain, back pain, urinary frequency or urgency, fever or chills, cough, shortness of breath. Review of Systems: Review of Systems: Constitutional: Denies fever or chills. [] Eyes: Denies change in visual acuity. [] HENT: Denies nasal congestion or sore throat. [] Respiratory: Denies cough or shortness of breath. [] Cardiovascular: Denies chest pain or edema. [] GI: Denies abdominal pain, nausea, vomiting, bloody stools or diarrhea. [] : Denies dysuria. [] Musculoskeletal: Denies back pain or joint pain. [] Integument: Denies rash. [] Neurologic: Denies headache, focal weakness or sensory changes. [] Endocrine: Denies polyuria or polydipsia. [] Lymphatic: Denies swollen glands. [] Psychiatric: Denies depression or anxiety. [] Heart Score: Risk Factors: Risk Factors: DM, Current or recent (<one month) smoker, HTN, HLP, family history of CAD, obesity. Risk Scores: Score 0 - 3: 2.5% MACE over next 6 weeks - Discharge Home Score 4 - 6: 20.3% MACE over next 6 weeks - Admit for Clinical Observation Score 7 - 10: 72.7% MACE over next 6 weeks - Early Invasive Strategies Allergies: Allergies: Allergies Coded Allergies Type Severity Reaction Last Updated Verified No Known Drug Allergies 10/25/18 No Physical Exam: PE: Constitutional: Well developed, well nourished, no acute distress, non-toxic appearance. [] HENT: Normocephalic, atraumatic, bilateral external ears normal, oropharynx moist, no oral exudates, nose normal. [] Eyes: PERRLA, EOMI, conjunctiva normal, no discharge. [] Neck: Normal range of motion, no tenderness, supple, no stridor. [] Cardiovascular:Heart rate regular rhythm, no murmur [] Lungs & Thorax: Bilateral breath sounds clear to auscultation [] Abdomen: Bowel sounds normal, soft, no tenderness, no masses, no pulsatile masses. [] : Normal-appearing external genitalia with a circumcised penis, no exudative changes from the penis was identified, the testicles were normal in position and size were nontender, no inguinal hernias were noted. Skin: Warm, dry, no erythema, no rash. [] Back: No tenderness, no CVA tenderness. [] [] EKG: EKG: [] Radiology/Procedures: Radiology/Procedures: [] Course & Med Decision Making: Course & Med Decision Making Pertinent Labs and Imaging studies reviewed. (See chart for details) [id number]-the patient was seen and reevaluated. Patient is very concerned that he is had a reoccurrence of his infection. I discussed with him the treatment plan. After discussion I did decide to go ahead and give him some antibiotics additionally. I discussed reasons to return and need for follow-up. [] Dragon Disclaimer: Dragon Disclaimer: This electronic medical record was generated, in whole or in part, using a voice recognition dictation system. Departure Departure Impression: Primary Impression: STD (male) Disposition: 01 HOME, SELF-CARE Condition: GOOD Referrals: ZAN PAK MD (PCP) Patient Instructions: Sexually Transmitted Disease Justicifation of Admission Dx: Justifications for Admission: Justification of Admission Dx: N/A JAE CARLOS MD Jun 01, 2020 01:12
[2020-06-01] MEDS ORDERED: AZITHROMYCIN 250 MG TABLET. PO ONE ×2 (01:15→05:00)
[2020-06-01] MEDS ORDERED: cefTRIAXone IM 250 MG VIAL IM ONE ×2 (01:15→05:00)
[2020-06-01 04:13] LABS: BILIRUBIN,URINE NEGATIVE (NEG); CLARITY,URINE CLEAR; COLOR,URINE YELLOW; NITRITE,URINE NEGATIVE (NEG); PROTEIN,URINE NEGATIVE (NEG-TRACE); UROBILINOGEN,URINE 0.2 mg/dL (0.2 mg/dL)
[2020-06-01 04:23] LABS: BACTERIA,URINE 0 /HPF (0-FEW); RBC,URINE 0 /HPF (0-2); SQUAMOUS EPITHELIAL CELL,UR OCC /LPF
[2020-06-01 05:01] VITALS: BP 158/100
== END 2020-06-01 05:03 | disposition home or self-care (01) ==
LOC: ER 00:40
DX: A64 Unspecified sexually transmitted disease (principal); F17.200 Nicotine dependence, unspecified, uncomplicated; F12.90 Cannabis use, unspecified, uncomplicated; Z85.9 Personal history of malignant neoplasm, unspecified; Z98.890 Other specified postprocedural states
CPT/HCPCS: 81001; 87491; 87591; 96372; 99283; J0696

== ENCOUNTER 2020-06-14 00:24 | Emergency (ER) | payer OTHER ==
[~2020-06-14] VITALS: Ht 188 cm; Wt 94.5 kg
[2020-06-14 00:42] LABS: BILIRUBIN,URINE NEGATIVE (NEG); CLARITY,URINE CLEAR; COLOR,URINE YELLOW; NITRITE,URINE NEGATIVE (NEG); PROTEIN,URINE NEGATIVE (NEG-TRACE); UROBILINOGEN,URINE 0.2 mg/dL (0.2 mg/dL)
[2020-06-14 00:48] LABS: SQUAMOUS EPITHELIAL CELL,UR OCC /LPF
[2020-06-14 00:49] LABS: BACTERIA,URINE 0 /HPF (0-FEW); WBC,URINE RARE /HPF (0-4)
--- NOTE | 2020-06-14 01:29 | PHYS DOC ---
Past Medical History Past Medical History: Cancer, STD Past Surgical History: No Surgical History, Other Smoking Status: Current Every Day Smoker Alcohol Use: Occasionally Drug Use: Marijuana General Adult EDM: Chief Complaint: SEXUALLY TRANSMITTED DISEASE HPI: HPI: Patient is 25-year-old male who presents to the emergency room complaining of penile discharge. He has been tested previously for this as well. He had a positive gonorrhea and chlamydia test in April. He found out today that his girlfriend has been having sex with other people. He would like treatment for STDs. Review of Systems: Review of Systems: General: Denies fever, chills, sweats, fatigue Eyes: Denies drainage, blurred vision, eye redness HENT: Denies rhinorrhea, sore throat, earache Respiratory: Denies cough, shortness of breath, wheezing Cardiac: Denies edema, palpitations, chest pain GI: Denies abdominal pain, Nausea, vomiting MSK: Denies back pain, neck pain Skin: Denies rash, jaundice Neuro: Denies headache, dizziness Psychiatric: Denies SI/HI Heart Score: Risk Factors: Risk Factors: DM, Current or recent (<one month) smoker, HTN, HLP, family hi story of CAD, obesity. Risk Scores: Score 0 - 3: 2.5% MACE over next 6 weeks - Discharge Home Score 4 - 6: 20.3% MACE over next 6 weeks - Admit for Clinical Observation Score 7 - 10: 72.7% MACE over next 6 weeks - Early Invasive Strategies Allergies: Allergies: Allergies Coded Allergies Type Severity Reaction Last Updated Verified No Known Drug Allergies 10/25/18 No Physical Exam: PE: General: Awake, alert, NAD. Well Nourished, well hydrated. Cooperative HEENT: Atraumatic, EOMI, PERRL, airway patent, moist oral mucosa Neck: Supple, trachea midline Respiratory: CTA bilaterally, normal effort, no wheezing/crackles CV: RRR, no murmur, cap refill <2 GI: Soft, nondistended, nontender, no masses MSK: No obvious deformities Skin: Warm, dry, intact Neuro: A&O x3, speech NL, sensory and motor grossly intact, no focal deficits Psych: Normal affect, normal mood, not suicidal or homicidal Current Patient Data: Labs: Laboratory Tests Test 06/14/20 00:37 Urine Collection Type Unknown Urine Color Yellow Urine Clarity Clear Urine pH 6.0 (<5.0-8.0) Urine Specific [place] 1.015 (1.000-1.030) Urine Protein Negative mg/dL (NEG-TRACE) Urine Glucose (UA) Negative mg/dL (NEG) Urine Ketones (Stick) Negative mg/dL (NEG) Urine Blood Negative (NEG) Urine Nitrite Negative (NEG) Urine Bilirubin Negative (NEG) Urine Urobilinogen Dipstick 0.2 mg/dL (0.2 mg/dL) Urine Leukocyte Esterase Negative (NEG) Urine RBC 1-2 /HPF (0-2) Urine WBC Rare /HPF (0-4) Urine Squamous Epithelial Cells Occ /LPF Urine Bacteria 0 /HPF (0-FEW) Urine Mucus Mod /LPF Vital Signs: Vital Signs Date Time Temp Pulse Resp B/P (MAP) Pulse Ox O2 Delivery O2 Flow Rate FiO2 06/14/20 00:30 98.3 86 20 164/98 (120) 98 Room Air 98.3 EKG: EKG: [] Radiology/Procedures: Radiology/Procedures: [] Course & Med Decision Making: Course & Med Decision Making Pertinent Labs and Imaging studies reviewed. (See chart for details) Patient is a 25 year-old male who presents to the Emergency Room complaining of penile discharge. Patient's presentation is concerning for urethritis due to possible sexually transmitted disease. Patient does not have any lesions or swelling at this time. UA and gonorrhea chlamydia urine PCR will be ordered. Patient will be treated empirically with Flagyl, Rocephin, Azithromycin, and zofran. I have discussed with the patient that they will need to follow up with the health department for full testing, that their partners should be tested and treated, and that they should not have sexual intercourse for at least 7 days after treatment. Patient's test results and vitals while in the ED were fully reviewed and discussed with the patient. Patient is stable and at this time does not need admission to the hospital. We have discussed strict return precautions and the importance of following up with their Primary Care Physician. Patient stated understanding and was given an opportunity to ask any questions. Patient is in agreement with plan. Dragon Disclaimer: Dragon Disclaimer: This electronic medical record was generated, in whole or in part, using a voice recognition dictation system. Departure Departure Impression: Primary Impression: Urethritis Disposition: HOME, SELF-CARE Condition: STABLE Referrals: ZAN PAK MD (PCP) Patient Instructions: Sexually Transmitted Disease, [id number] Justicifation of Admission Dx: Justifications for Admission: Justification of Admission Dx: N/A FEMI LINDSAY MD Jun 14, 2020 01:29
[2020-06-14] MEDS ORDERED: AZITHROMYCIN 250 MG TABLET. PO ONE (01:45)
[2020-06-14] MEDS ORDERED: metroNIDAZOLE 500 MG TABLET PO ONE (01:45)
[2020-06-14] MEDS ORDERED: ONDANSETRON ODT 4 MG TAB.RAPDIS. PO ONE (01:45)
[2020-06-14] MEDS ORDERED: cefTRIAXone IM 250 MG VIAL IM ONE (01:45)
[2020-06-14 02:35] VITALS: BP 156/74
== END 2020-06-14 02:37 | disposition home or self-care (01) ==
LOC: ER 00:24
DX: N34.2 Other urethritis (principal); R36.9 Urethral discharge, unspecified; F17.200 Nicotine dependence, unspecified, uncomplicated; F12.90 Cannabis use, unspecified, uncomplicated; Z85.9 Personal history of malignant neoplasm, unspecified
CPT/HCPCS: 81001; 87491; 87591; 96372; 99284; J0696

== ENCOUNTER 2020-07-08 12:14 | Emergency (ER) | payer SELFPAY ==
[~2020-07-08] VITALS: Ht 185.4 cm; Wt 100.0 kg
[2020-07-08 12:33] VITALS: BP 173/88
[2020-07-08] MEDS ORDERED: cefTRIAXone IM 250 MG VIAL IM ONE (12:45)
[2020-07-08] MEDS ORDERED: AZITHROMYCIN 250 MG TABLET. PO ONE (12:45)
[2020-07-08] MEDS ORDERED: ONDANSETRON ODT 4 MG TAB.RAPDIS. PO ONE (12:45)
--- NOTE | 2020-07-08 12:46 | PHYS DOC ---
Past Medical History Past Medical History: Cancer, STD Past Surgical History: No Surgical History, Other Smoking Status: Current Every Day Smoker Alcohol Use: Occasionally Drug Use: Marijuana General Adult EDM: Chief Complaint: SEXUALLY TRANSMITTED DISEASE HPI: HPI: Patient is a 25 year old male who presents with last 2 days of creamy white discharge and a tingling burning feeling at the tip of his penis. Currently with examination no discharge seen. There is no irritation or sores or swelling. No testicular swelling or pain. Patient denies burning with u rination, back pain, abdominal pain, nausea, vomiting, fever, chest pain, dizziness, shortness of breath, cough. Patient states he has had sex with somebody recently that was diagnosed with chlamydia. He states that he was here on June 14 for the same symptoms and he was treated then. When I looked back in the chart he was negative for chlamydia and gonorrhea on June 14. Alvaro castillo's urine is sent off again today for chlamydia and gonorrhea and I will treat him again today. Patient has a history of smoking, STD, cancer. Denies any pain at this time. Review of Systems: Review of Systems: Constitutional: Denies fever or chills. [] Eyes: Denies change in visual acuity. [] HENT: Denies nasal congestion or sore throat. [] Respiratory: Denies cough or shortness of breath. [] Cardiovascular: Denies chest pain or edema. [] GI: Denies abdominal pain, nausea, vomiting, bloody stools or diarrhea. [] : Denies dysuria. Penile discharge. Tingling or burning at the tip of penis. [] Musculoskeletal: Denies back pain or joint pain. [] Integument: Denies rash. [] Neurologic: Denies headache, focal weakness or sensory changes. [] Endocrine: Denies polyuria or polydipsia. [] Lymphatic: Denies swollen glands. [] Psychiatric: Denies depression or anxiety. [] Heart Score: Risk Factors: Risk Factors: DM, Current or recent (<one month) smoker, HTN, HLP, family history of CAD, obesity. Risk Scores: Score 0 - 3: 2.5% MACE over next 6 weeks - Discharge Home Score 4 - 6: 20.3% MACE over next 6 weeks - Admit for Clinical Observation Score 7 - 10: 72.7% MACE over next 6 weeks - Early Invasive Strategies Allergies: Allergies: Allergies Coded Allergies Type Severity Reaction Last Updated Verified No Known Drug Allergies 10/25/18 No Physical Exam: PE: Constitutional: Well developed, well nourished, no acute distress, non-toxic appearance. [] HENT: Normocephalic, atraumatic, bilateral external ears normal, oropharynx moist, no oral exudates, nose normal. [] Eyes: PERRLA, EOMI, conjunctiva normal, no discharge. [] Neck: Normal range of motion, no tenderness, supple, no stridor. [] Cardiovascular:Heart rate regular rhythm, no murmur [] Lungs & Thorax: Bilateral breath sounds clear to auscultation [] Abdomen: Bowel sounds normal, soft, no tenderness, no masses, no pulsatile masses. [] Skin: Warm, dry, no erythema, no rash. [] Back: No tenderness, no CVA tenderness. [] Extremities: No tenderness, no cyanosis, no clubbing, ROM intact, no edema. [] Neurologic: Alert and oriented X 3, normal motor function, normal sensory function, no focal deficits noted. [] Psychologic: Affect normal, judgement normal, mood normal. Normal physical exam. [] Current Patient Data: Vital Signs: Vital Signs Date Time Temp Pulse Resp B/P (MAP) Pulse Ox O2 Delivery O2 Flow Rate FiO2 07/08/20 12:33 98.2 89 18 173/88 (116) 98 Room Air 98.2 EKG: EKG: [] Radiology/Procedures: Radiology/Procedures: [] Course & Med Decision Making: Course & Med Decision Making Pertinent Labs and Imaging studies reviewed. (See chart for details) See HPI. Alert and oriented x4. Abdomen soft and nontender. Skin pink warm and dry. Vital signs within normal limits. Patient is treated with azithromycin and Rocephin in the ED. I will check his urine for infection. I will educate the patient that in 48 hours he will be called if he has positive results only. Patient will be educated that he needs to follow-up with your neurologist if symptoms come back and he has not had sexual intercourse with anyone else. [] Dragon Disclaimer: Dragon Disclaimer: This electronic medical record was generated, in whole or in part, using a voice recognition dictation system. Departure Departure Impression: Primary Impression: Exposure to STD Disposition: HOME, SELF-CARE Condition: STABLE Referrals: ZAN PAK MD (PCP) Patient Instructions: Sexually Transmitted Disease Additional Instructions: Follow-up with your primary care doctor if symptoms persist. You may need to go see a urologist of which we do not have at this hospital. Drink plenty of fluids. Refrain from any sexual intercourse for the next week. Justicifation of Admission Dx: Justifications for Admission: Justification of Admission Dx: N/A BRANDI FERRER [employer] Jul 08, 2020 12:46
[2020-07-08 13:05] LABS: BILIRUBIN,URINE NEGATIVE (NEG); CLARITY,URINE CLEAR; COLOR,URINE YELLOW; NITRITE,URINE NEGATIVE (NEG); PROTEIN,URINE NEGATIVE (NEG-TRACE); UROBILINOGEN,URINE 0.2 mg/dL (0.2 mg/dL)
[2020-07-08 13:30] LABS: SQUAMOUS EPITHELIAL CELL,UR FEW /LPF
[2020-07-08 13:31] LABS: BACTERIA,URINE 0 /HPF (0-FEW); RBC,URINE 0 /HPF (0-2); WBC,URINE TNTC /HPF (0-4)
== END 2020-07-08 14:03 | disposition home or self-care (01) ==
LOC: ER 12:14
DX: R20.2 Paresthesia of skin (principal); Z20.2 Contact with and (suspected) exposure to infections with a predominantly sexual mode of transmission; F17.200 Nicotine dependence, unspecified, uncomplicated; F12.90 Cannabis use, unspecified, uncomplicated
CPT/HCPCS: 81001; 87086; 87491; 87591; 96372; 99283; J0696